=== PATIENT | female | born 1945 | race Caucasian/White ===

== ENCOUNTER 2020-09-24 13:31 | Outpatient (REF) | payer MEDICARE, SELFPAY ==
[2020-09-24 13:54] LABS: Glucose Urine UA NEG (NEG); Leukocyte Esterase Urine 2+ (NEG); Nitrite Urine POS (NEG); PH 6.5 (5.0-8.0); Specific Gravity - Urine <= 1.005 (1.005-1.025); Urine Blood NEG (NEG); Urine Ketones NEG (NEG); Urine Protein NEG (NEG-TRACE)
[2020-09-24 14:03] LABS: Appearance Urine HAZY; Color Urine YELLOW
[2020-09-24 14:41] LABS: Bacteria Urine 3+ /LPF; RBC Urine 0-2 /HPF (0); Squamous Epithelial Cell Urine 1+ /LPF; WBC Urine 30-49 /HPF (0-4)
== END 2020-09-24 13:32 | disposition home or self-care (01) ==
LOC: HO.LNP 13:31
PROVIDERS: Visit Provider Physician Assistant Medical
DX: N39.0 Urinary tract infection, site not specified (principal)
CPT/HCPCS: 81001

== ENCOUNTER 2021-05-24 10:31 | Emergency (ER) | payer MEDICARE, SELFPAY ==
[2021-05-24 10:40] VITALS: BP 180/77; PULSE 69; RESP 18; TEMP 36.7; O2SAT 97; BMI 27.4
--- NOTE | 2021-05-24 10:44 | ED.EAR ---
HPI - Ear Problem General Chief complaint: Ear Problems Stated complaint: ear pain Time Seen by Provider: 05/24/21 10:44 Source: patient Mode of arrival: ambulatory Limitations: no limitations History of Present Illness HPI Narrative: Patient is a 76 year old female presenting to the emergency department today with a left sided ear ache and left sided mouth pain. Patient states that she has dentures and it has been rubbing against the left side of her mouth more lately. Patient states that the earache kept her awake last night. Patient describes the pain as throbbing and rates it as a 4/10 on the pain scale. Patient denies any dizziness, lightheadedness, abdominal pain, nausea, vomiting, fever, chills, blurry vision, double vision, loss of vision, chest pain, difficulty breathing, shortness of breath, back pain, night sweats, pain with urination, increased urinary frequency, increased urinary urgency, blood in her urine or stool, syncope or a near syncopal episode, recent trauma or falls, bowel incontinence, bladder incontinence, bowel retention, bladder retention, or any other complaints at this time. MD Complaint: ear pain Location: left ear Duration: constant Severity: mild Relieving factors: nothing Exacerbating factors: nothing Discharge from ear: no Associated symptoms ear: other (left sided mouth pain) Treatment prior to arrival: none Related Data Home Medications Medication Instructions Recorded Confirmed amlodipine 5 mg tablet 5 mg PO DAILY 09/24/20 omeprazole 20 mg capsule,delayed 20 mg PO DAILY 09/24/20 release Previous Rx's Medication Instructions Recorded nitrofurantoin macrocrystal 100 mg 100 mg PO Q12H #10 cap 09/24/20 capsule clindamycin HCl 150 mg capsule 450 mg PO TID 7 Days #63 cap 05/24/21 Allergies Allergy/AdvReac Type Severity Reaction Status Date / Time Penicillins Allergy RASH, Verified 09/24/20 10:14 REDNESS Review of Systems Constitutional: Constitutional: Reports no additional constitutional complaints, Denies chills, Denies fever(s) and Denies night sweats Eyes: Eyes: Reports no additional eye complaints, Denies blurry vision, Denies change in vision, Denies diplopia, Denies eye discharge, Denies loss of vision and Denies eye pain ENT: Denies dizziness Comments: left sided ear pain Cardiovascular: Cardiovascular: Reports no additional cardiovascular complaints, Denies chest pain, Denies lightheadedness, Denies Loss of Consciousness and Denies dyspnea Respiratory: Respiratory: Reports no additional respiratory complaints and Denies dyspnea Gastrointestinal: Gastrointestinal: Reports no additional gastrointestinal complaints, Denies abdominal pain, Denies melena, Denies hematochezia, Denies change in bowel habits and Denies change in stool character Genitourinary: Genitourinary: Denies hematuria, Denies urinary frequency, Denies dysuria, Denies urinary incontinence, Denies urinary hesitancy and Denies urinary urgency Musculoskeletal: Musculoskeletal: Reports no additional musculoskeletal complaints, Denies numbness and Denies tingling Neurologic: Denies dizziness, Denies loss of vision, Denies numbness and Denies tingling Psychiatric: Psychiatric: Reports no additional psychiatric complaints Endocrine: Endocrine: Reports no additional endocrine complaints Hematologic/Lymphatic: Hematologic/Lymphatic: Reports no additional hematologic/lymphatic complaints Allergic/Immunologic: Allergic/Immunologic: Reports no additional allergic/immunologic complaints PMFSH Past Medical History Attestation statement: The following information was validated with the patient. Source: old records reviewed Medical History Hypertension Social History Social History Advance Directives: No Advance Directives Information Provided: Yes Physical Exam Vital Signs: Vital Signs: Last Vital Signs Temp 98.0 F 05/24/21 10:40 Pulse 69 05/24/21 10:40 Resp 18 05/24/21 10:40 BP 180/77 H 05/24/21 10:40 Pulse Ox 97 05/24/21 10:40 BMI result Body Mass Index 27.4 Const: General: cooperative, no acute distress, alert and awake Nutritional Appearance: well nourished Orientation/consciousness: patient oriented x3 Limitations: no limitations HENMT: Head: Yes normal to inspection and Yes atraumatic Ears: hearing grossly normal bilaterally, external ears normal and TM abnormal (very mild erythema to the left TM) General nose exam: Normal external nose present, no nasal discharge noted and no epistaxis Face and sinus: Yes normal facial exam, No abrasion and No laceration Mouth: Normal oral and palatal mucosa present, no drooling and no muffled voice Teeth and gingiva: other (erythema and swelling to the left side of the mouth) Eyes: General: appearance normal, both eyes and all related structures Periorbital: periorbital findings normal Eyelids: Yes eyelids normal Conjunctivae: conjunctivae normal Pupils: Equal, round and reactive pupils present EOM: EOMs intact bilaterally Neck: Neck: Yes normal visual inspection, Yes full ROM and Yes no lymphadenopathy Chest: Chest palpation & inspection: normal inspection of the chest Resp: Effort & Inspection: normal respiratory effort and able to speak in complete sentences GI: Inspection: Yes normal to inspection Neuro: General: patient oriented x3 and moves all extremities Cranial nerves: Yes Equal, round and reactive pupils present Cognition (Neuro): normal cognition Motor exam (neuro): 5/5 motor strength present throughout Sensory Exam: Normal double simultaneous stimulation for sensation Coordination: [id number] test normal Extrem: General: Yes normal to inspection, Yes full ROM and Yes capillary refill normal Psych: Appearance: grossly normal Mental Status: mental status grossly normal Affect: normal affect Attitude: cooperative Thought process: Normal thought process present Thought content: Normal thought content present Insight: Good insight present (Psych) MDM - Ear MDM Narrative Medical decision making narrative: Patient is a 76 year old female presenting to the emergency department today with left ear pain and left sided mouth pain. Patient's physical exam showed mild swelling to the left side of the inner mouth with some erythema as well as very mild erythema to the left TM. I explained my physical exam findings to the patient. I answered all questions asked by the patient. I stressed the importance of the patient taking her medication as prescribed. I stressed the importance of the patient following up with her primary care provider. I stressed the importance of the patient returning to the emergency department immediately if her symptoms were to worsen or if she were to develop any dizziness, shortness of breath, difficulty breathing, chest pain, blurry vision, loss of vision, nausea, vomiting, abdominal pain, fever, chills, back pain, or any other complaints. Patient verbalized agreement and understanding with this treatment plan and discharge. Differential Diagnosis Differential diagnosis: Likely otitis externa (dental abscess) and otitis media Medical Records Attestation: I reviewed the patient's medical records. Discharge Plan Discharge Clinical Impression: Dental abscess Patient Disposition: Home, Self-Care Instructions: Dental Abscess (ED) Additional Instructions: Follow up with your primary care provider and dentist. Return to the emergency department immediately if your symptoms worsen or if you develop any dizziness, shortness of breath, difficulty breathing, chest pain, blurry vision, loss of vision, nausea, vomiting, abdominal pain, fever, chills, back pain, or any other complaints. Prescriptions: New clindamycin HCl 150 mg capsule 450 mg PO TID 7 Days Qty: 63 0RF No Action nitrofurantoin macrocrystal 100 mg capsule 100 mg PO Q12H Qty: 10 0RF Rx Instructions: must administer with a meal/food Referrals: Rachel Fabian MD [Primary Care Provider] - 2 days Interventions: ED Discharge Assessment Last Done: 05/24/21 10:58 Discharge Date/Time: 05/24/21 11:01 Print Language: [place]
== END 2021-05-24 11:01 | disposition home or self-care (01) ==
PROVIDERS: Emergency Provider Emergency Medicine Emergency Medical Services; PCP Pediatrics
DX: K04.7 Periapical abscess without sinus (principal); H92.02 Otalgia, left ear
CPT/HCPCS: 99283

== ENCOUNTER 2021-06-30 14:21 | Outpatient (REF) | payer MEDICARE, SELFPAY ==
[2021-06-30 14:30] LABS: MANUAL DIFF FLAG NO
[2021-06-30 15:33] LABS: Basophils Absolute Auto 0.1 X10*3/uL (0.0-0.2); Basophils Percent Auto 0.7 % (0-2); Eosinophils Absolute Auto 0.4 X10*3/uL (0.0-0.4); Eosinophils Percent Auto 4.9 % (0-4); Hemoglobin 14.3 g/dl (12.0-16.0); Imm Gran Abs Auto 0.02 X10*3/uL (0.00-0.03); Imm Gran Pct Auto 0.2 % (0.0-0.4); Lymphocytes Absolute Auto 2.1 X10*3/uL (1.2-4.9); Lymphocytes Percent Auto 23.6 % (20-40); Mean Corpuscular HGB Conc 33.3 g/dl (31.0-35.0); Mean Corpuscular Hemoglobin 29.8 pg (27.0-33.0); Mean Corpuscular Volume 89.6 fL (80.0-98.0); Mean Platelet Volume 9.7 fL (9.4-12.3); Monocytes Absolute Auto 0.7 X10*3/uL (0.1-1.2); Monocytes Percent Auto 8.3 % (2-11); Neutrophils Absolute Auto 5.5 x10*3/uL (2.0-8.3); Neutrophils Percent Auto 62.3 % (45-73); Platelet Count 333 X10*3/uL (160-400); Red Cell Distribution Width 12.5 % (11.0-16.0); White Blood Count 8.8 X10*3/uL (4.8-10.8)
== END 2021-06-30 14:22 | disposition home or self-care (01) ==
LOC: HO.LAB 14:21
PROVIDERS: PCP Pediatrics; Visit Provider Hospitalist
DX: M54.2 Cervicalgia (principal); R22.1 Localized swelling, mass and lump, neck; Z87.19 Personal history of other diseases of the digestive system
CPT/HCPCS: 36415; 85025

== ENCOUNTER 2021-08-08 09:28 | Emergency (ER) | payer MEDICARE, SELFPAY ==
--- NOTE | ~2021-08-08 | XR_ITS ---
EXAMINATION: XR CHEST CLINICAL INFORMATION: Dizziness COMPARISON: None TECHNIQUE: Frontal view of the chest was obtained. FINDINGS: Cardiac leads overlie the chest. The lungs are well expanded. There is no focal consolidation, edema, or effusion. No pneumothorax. The cardiomediastinal silhouette is within normal limits of size with a calcified aorta. No acute osseous abnormality. XR/XR chest 1V IMPRESSION: Clear lungs.
--- NOTE | ~2021-08-08 | CT_ITS ---
EXAMINATION: CT HEAD WITHOUT CONTRAST CLINICAL INFORMATION: Dizziness. Headache. COMPARISON: None. TECHNIQUE: Contiguous axial imaging was performed from the skull base to vertex without intravenous contrast. This CT examination was performed using dose optimization techniques as appropriate, variously including the following: * Automated exposure control * Adjustment of mA and/or kV according to patient size (this includes techniques or standardized protocols for targeted exams where dose is matched to indication/reason for exam; i.e. extremities or head) Use of iterative reconstruction technique DLP: 567 mGy-cm. FINDINGS: There is no evidence of acute intracranial hemorrhage or territorial infarction. No abnormal mass effect or midline shift is seen. [place] to white matter differentiation is well preserved. No extra-axial fluid collections are identified. No hydrocephalus. Proportional prominence of the ventricles and sulcal spaces is consistent with mild volume loss. Patchy periventricular and deep white matter hypoattenuation is consistent with mild small vessel ischemic changes. The osseous structures and soft tissues are normal. The mastoid air cells and visualized portions of the paranasal sinuses are well aerated. CT/CT head/brain wo con IMPRESSION: No acute intracranial pathology.
[2021-08-08 09:31] VITALS: BP 171/78; PULSE 79; RESP 16; TEMP 36.7; O2SAT 98; BMI 27.9
[2021-08-08 09:42] LABS: MANUAL DIFF FLAG NO
[2021-08-08 09:50] LABS: Basophils Absolute Auto 0.1 X10*3/uL (0.0-0.2); Basophils Percent Auto 0.9 % (0-2); Eosinophils Absolute Auto 0.5 X10*3/uL (0.0-0.4); Hematocrit 45.1 % (37.0-47.0); Hemoglobin 15.5 g/dl (12.0-16.0); Imm Gran Abs Auto 0.05 X10*3/uL (0.00-0.03); Imm Gran Pct Auto 0.7 % (0.0-0.4); Lymphocytes Absolute Auto 1.8 X10*3/uL (1.2-4.9); Lymphocytes Percent Auto 23.5 % (20-40); Mean Corpuscular HGB Conc 34.4 g/dl (31.0-35.0); Mean Corpuscular Hemoglobin 30.2 pg (27.0-33.0); Mean Corpuscular Volume 87.9 fL (80.0-98.0); Mean Platelet Volume 8.8 fL (9.4-12.3); Monocytes Absolute Auto 0.5 X10*3/uL (0.1-1.2); Monocytes Percent Auto 7.1 % (2-11); Neutrophils Absolute Auto 4.7 x10*3/uL (2.0-8.3); Neutrophils Percent Auto 61.8 % (45-73); Platelet Count 303 X10*3/uL (160-400); Red Blood Count 5.13 X10*6/uL (4.20-5.50); Red Cell Distribution Width 12.3 % (11.0-16.0); White Blood Count 7.6 X10*3/uL (4.8-10.8)
[2021-08-08 09:58] LABS: Alanine Aminotransferase 31 U/L (0-31); Albumin Level 4.3 g/dL (3.5-5.0); Alkaline Phosphatase 92 U/L (39-117); Anion Gap 12 (12-20); Aspartate Amino Transferase 27 U/L (5-31); Bilirubin Total 0.4 mg/dL (0.0-1.0); Blood Urea Nitrogen 18 mg/dL (9-16); Calcium 9.1 mg/dL (8.4-10.2); Carbon Dioxide 27 mmol/L (22-29); Chloride 107 mmol/L (96-108); Creatinine Clr Calc Pharmacy 54.7; Estimated Glomerular Filt Rate 60; Glucose Random 100 mg/dL (60-115); Potassium 4.4 mmol/L (3.3-5.1); Sodium 142 mmol/L (135-145); Total Protein 7.7 g/dL (6.5-8.0)
--- NOTE | 2021-08-08 11:09 | ECG_ITS ---
Test Reason : dizziness Blood Pressure : / mmHG Vent. Rate : 066 BPM Atrial Rate : 066 BPM P-R Int : 146 ms QRS Dur : 088 ms QT Int : 396 ms P-R-T Axes : 055 -11 032 degrees QTc Int : 415 ms Sinus rhythm with occasional Premature ventricular complexes Nonspecific ST abnormality Abnormal ECG No previous ECGs available Referred By: Avani Wolfe Electronically Signed By:CHIO HOFFMAN MD
[2021-08-08] MEDS: 0.9 % Sodium Chloride 1,000 ML 999 ML IV (11:26)
[2021-08-08] MEDS: Meclizine HCl 25 MG TABLET PO (11:29)
[2021-08-08] MEDS: diphenhydrAMINE HCL 50 MG/ML VIAL 12.5 MG IVPUSH (11:29)
[2021-08-08 11:31] VITALS: BP 169/75; PULSE 76
[2021-08-08 11:32] VITALS: BP 165/76; PULSE 64
[2021-08-08 11:33] VITALS: BP 174/82; PULSE 80
[2021-08-08 11:35] VITALS: BP 174/82; PULSE 72; RESP 16; O2SAT 98
--- NOTE | 2021-08-08 11:36 | PC.NURSE ---
IV #20 placed in left AC
[2021-08-08 11:41] LABS: Anion Gap 12 (12-20); Blood Urea Nitrogen 17 mg/dL (9-16); Calcium 9.4 mg/dL (8.4-10.2); Carbon Dioxide 27 mmol/L (22-29); Chloride 107 mmol/L (96-108); Creatinine Clr Calc Pharmacy 55.3; Estimated Glomerular Filt Rate > 60; Glucose Random 103 mg/dL (60-115); Potassium 4.5 mmol/L (3.3-5.1); Sodium 141 mmol/L (135-145)
[2021-08-08 11:44] LABS: Magnesium 2.1 mg/dL (1.6-2.6)
[2021-08-08 11:53] LABS: Troponin-I High Sensitivity < 3.5 ng/L (<3.5-17.0)
--- NOTE | 2021-08-08 12:13 | ED.GENADULT ---
HPI - General Adult General Chief complaint: Dizziness Stated complaint: Dizzy Time Seen by Provider: 08/08/21 10:54 Source: patient Mode of arrival: ambulatory History of Present Illness HPI narrative: 76-year-old female with past medical to hypertension presenting to the ED complaining of intermittent dizziness described as feeling off balance x1 week worse with bending over/position changes. Also reports posterior pressure-like headache. Denies vision change/loss, weakness, numbness, tingling, chest pain pressure with abdominal pain nausea/vomiting. Admits to similar symptoms in the past with prior ear infection Onset (ago): week(s) Related Data Home Medications Medication Instructions Recorded Confirmed amlodipine 5 mg tablet 5 mg PO DAILY 09/24/20 omeprazole 20 mg capsule,delayed 20 mg PO DAILY 09/24/20 release Previous Rx's Medication Instructions Recorded meclizine 25 mg tablet 25 mg PO TID PRN #14 tab 08/08/21 Allergies Allergy/AdvReac Type Severity Reaction Status Date / Time Penicillins Allergy RASH, Verified 06/30/21 13:25 REDNESS Review of Systems Review of Systems: Constitutional: No Fever, No Chills, No Fatigue, No Malaise ENT/Mouth: No Ear Pain, No Nasal Congestion, No sore throat, No Rhinorrhea, No Swallowing Difficulty Eyes: No Eye Pain, No Swelling, No Redness, No Vision Changes Cardiovascular: No Chest Pain, No SOB, No Dyspnea on Exertion, No Orthopnea, No Edema, No Palpitations Respiratory: No Cough, No Sputum, No Dyspnea Gastrointestinal: No Nausea, No Vomiting, No Diarrhea, No Constipation, No Abdominal pain Genitourinary: No Dysuria, No Urinary Frequency, No Hematuria, No Flank Pain Musculoskeletal: No joint pain, No Myalgias, No Joint Swelling Skin: No Skin Lesions, No rash Neuro: No Weakness, No Numbness, No Paresthesias, No Loss of Consciousness, + Dizziness, + Headache Yes all other systems are reviewed and are negative Neurologic: Denies Abnormal speech present [facility] Past Medical History Attestation statement: The following information was validated with the patient. Medical History Hypertension Social History Social History Alcohol intake: current Alcohol intake frequency: holidays/special occasions only Patient Tobacco Use Status: Never used Tobacco Advance Directives: Yes Advance Directives Information Provided: Yes Advance Directives on File: No Physical Exam ED Vital Signs: Vital Signs - 24 hr 08/08/21 09:31 08/08/21 11:31 08/08/21 11:32 Temperature 98.0 F Pulse Rate 79 76 64 Respiratory Rate 16 Blood Pressure 171/78 H 169/75 H 165/76 H Pulse Oximetry 98 08/08/21 11:33 08/08/21 11:35 08/08/21 12:18 Temperature 98.2 F Pulse Rate 80 72 60 Respiratory Rate 16 18 Blood Pressure 174/82 H 174/82 H 174/82 H Pulse Oximetry 98 98 BMI result Body Mass Index 27.9 Const General: cooperative, healthy appearing, no acute distress, well developed, alert, awake and Physically active Orientation/consciousness: patient oriented x3 Limitations: no limitations HENMT Head: Yes normal to inspection and Yes atraumatic Ears: hearing grossly normal bilaterally General nose exam: Normal external nose present Face and sinus: Yes normal facial exam Eyes General: appearance normal, both eyes and all related structures Pupils: Equal, round and reactive pupils present EOM: EOMs intact bilaterally Neck Neck: Yes normal visual inspection and Yes no meningeal signs Resp Effort & Inspection: normal respiratory effort and no respiratory distress Auscultation: clear to auscultation bilaterally, no rales, no rhonchi and no wheezes Cardio Rate: regular rate Heart sounds: S1 normal heart sound present and S2 normal heart sound present GI Inspection: Yes normal to inspection Palpation (GI): Soft to palpation, nontender, no guarding and not rigid Skin Rashes: no rashes Wounds: no wounds Neuro General: patient oriented x3, gait normal, tone normal, moves all extremities, no meningeal signs, no focal motor deficits and CN's II-XI intact bilaterally Cranial nerves: Yes CN's II-XII intact bilaterally, Yes Equal, round and reactive pupils present, Yes Bilaterally intact EOM present and Yes Nystagmus not present Cognition (Neuro): normal cognition Speech: No Abnormal speech present Gait exam (Neuro): Normal gait present and not ataxic Motor exam (neuro): 5/5 motor strength present throughout, Pronator motor function not present and no tremor noted Coordination: [id number] test normal Romberg Test: Negative Extrem Other: Mild bilateral LE edema greater to left (chronically per patient) Course Course Course Narrative: -1227--none unremarkable. Troponin negative. -orthostatic vital signs negative CT head/brain wo con IMPRESSION: No acute intracranial pathology. >1313--on re-evaluation patient reports mild symptomatic improvement, ambulated safely/steady to bathroom without assistance. XR chest 1V IMPRESSION: Clear lungs. ? -1328--UA negative. Results discussed with patient including worrisome signs and symptoms and strict return precautions and need a close follow-up with the ENT/PCP. Patient verbalized understanding and feels safe for discharge home at this time Medical Decision Making MDM Narrative Medical decision making narrative: 76-year-old female with past medical to hypertension presenting to the ED complaining of intermittent dizziness described as feeling off balance x1 week worse with bending over/position changes. On exam vital signs stable, NAD/nontoxic-appearing, no focal neuro deficits, ambulating with steady gait, no ataxia. Concern for vertigo/BPPV, no evidence of otitis at this time. For concern for SAH, meningitis/encephalitis, CVA or CVT Plan: EKG, labs, UA, head CT, CXR, symptomatic remedie, orthostatics, re-evaluate Medical Records Medical records reviewed: Yes I reviewed the patient's medical records. Lab Data Lab results reviewed: Yes I reviewed the patient's lab results. Result diagrams: 08/08/21 09:38 08/08/21 11:18 Labs: Lab Results 08/08/21 08/08/21 08/08/21 Range/Units 09:38 09:38 09:38 WBC 7.6 (4.8-10.8) X10*3/uL RBC 5.13 (4.20-5.50) X10*6/uL Hgb 15.5 (12.0-16.0) g/dl Hct 45.1 (37.0-47.0) % MCV 87.9 (80.0-98.0) fL MCH 30.2 (27.0-33.0) pg MCHC 34.4 (31.0-35.0) g/dl RDW 12.3 (11.0-16.0) % Plt Count 303 (160-400) X10*3/uL MPV 8.8 L (9.4-12.3) fL Immature Gran % (Auto) 0.7 H (0.0-0.4) % Neut % (Auto) 61.8 (45-73) % Lymph % (Auto) 23.5 (20-40) % [place] % (Auto) 7.1 (2-11) % Eos % (Auto) 6.0 H (0-4) % Baso % (Auto) 0.9 (0-2) % Lymph # (Auto) 1.8 (1.2-4.9) X10*3/uL [place] # (Auto) 0.5 (0.1-1.2) X10*3/uL Eos # (Auto) 0.5 H (0.0-0.4) X10*3/uL Baso # (Auto) 0.1 (0.0-0.2) X10*3/uL Abs Immat Gran (auto) 0.05 H (0.00-0.03) X10*3/uL Absolute Neuts (auto) 4.7 (2.0-8.3) x10*3/uL Absolute Nucleated RBC 0.000 (0.0-0.012) X10*3/uL Nucleated RBC % (auto) 0.0 (0.0-0.2) /100WBC Sodium 142 (135-145) mmol/L Potassium 4.4 (3.3-5.1) mmol/L Chloride 107 (96-108) mmol/L Carbon Dioxide 27 (22-29) mmol/L Anion Gap 12 (12-20) BUN 18 H (9-16) mg/dL Creatinine 0.91 (0.5-1.4) mg/dL Estim Creat Clear Calc 54.7 Estimated GFR 60 Random Glucose 100 (60-115) mg/dL Calcium 9.1 (8.4-10.2) mg/dL Magnesium 2.1 (1.6-2.6) mg/dL Total Bilirubin 0.4 (0.0-1.0) mg/dL AST 27 (5-31) U/L ALT 31 (0-31) U/L Alkaline Phosphatase 92 (39-117) U/L Troponin I High Sens < 3.5 (<3.5-17.0) ng/L Total Protein 7.7 (6.5-8.0) g/dL Albumin 4.3 (3.5-5.0) g/dL Urine Color Urine Appearance Urine pH (5.0-8.0) Ur Specific [place] (1.005-1.025) Urine Protein (NEG-TRACE) MG/DL Urine Glucose (UA) (NEG) MG/DL Urine Ketones (NEG) MG/DL Urine Blood (NEG) Urine Nitrite (NEG) Ur Leukocyte Esterase (NEG) 08/08/21 08/08/21 Range/Units 11:18 13:07 WBC (4.8-10.8) X10*3/uL RBC (4.20-5.50) X10*6/uL Hgb (12.0-16.0) g/dl Hct (37.0-47.0) % MCV (80.0-98.0) fL MCH (27.0-33.0) pg MCHC (31.0-35.0) g/dl RDW (11.0-16.0) % Plt Count (160-400) X10*3/uL MPV (9.4-12.3) fL Immature Gran % (Auto) (0.0-0.4) % Neut % (Auto) (45-73) % Lymph % (Auto) (20-40) % [place] % (Auto) (2-11) % Eos % (Auto) (0-4) % Baso % (Auto) (0-2) % Lymph # (Auto) (1.2-4.9) X10*3/uL [place] # (Auto) (0.1-1.2) X10*3/uL Eos # (Auto) (0.0-0.4) X10*3/uL Baso # (Auto) (0.0-0.2) X10*3/uL Abs Immat Gran (auto) (0.00-0.03) X10*3/uL Absolute Neuts (auto) (2.0-8.3) x10*3/uL Absolute Nucleated RBC (0.0-0.012) X10*3/uL Nucleated RBC % (auto) (0.0-0.2) /100WBC Sodium 141 (135-145) mmol/L Potassium 4.5 (3.3-5.1) mmol/L Chloride 107 (96-108) mmol/L Carbon Dioxide 27 (22-29) mmol/L Anion Gap 12 (12-20) BUN 17 H (9-16) mg/dL Creatinine 0.90 (0.5-1.4) mg/dL Estim Creat Clear Calc 55.3 Estimated GFR > 60 Random Glucose 103 (60-115) mg/dL Calcium 9.4 (8.4-10.2) mg/dL Magnesium (1.6-2.6) mg/dL Total Bilirubin (0.0-1.0) mg/dL AST (5-31) U/L ALT (0-31) U/L Alkaline Phosphatase (39-117) U/L Troponin I High Sens (<3.5-17.0) ng/L Total Protein (6.5-8.0) g/dL Albumin (3.5-5.0) g/dL Urine Color STRAW Urine Appearance HAZY Urine pH 5.5 (5.0-8.0) Ur Specific [place] <= 1.005 (1.005-1.025) Urine Protein NEG (NEG-TRACE) MG/DL Urine Glucose (UA) NEG (NEG) MG/DL Urine Ketones NEG (NEG) MG/DL Urine Blood NEG (NEG) Urine Nitrite NEG (NEG) Ur Leukocyte Esterase 1+ H (NEG) ECG Data Attestation: I personally reviewed and interpreted this ECG as follows: Prior ECG tracings: available for review Interpretation: ED normal sinus rhythm with occasional PVC 356. QTC 415. No STEMI. Nonischemic Discharge Plan Discharge Clinical Impression: Dizziness Patient Disposition: Home, Self-Care Instructions: Vertigo (DC) Additional Instructions: Your blood work, head CT, and urine were reassuring today in the emergency department. Meclizine helps with dizziness, take as needed. Please stay hydrated at home. Rest. Follow up with her doctor and an ENT specialist If symptoms persist or worsen, have constant worsening dizziness, persistent or worsening headache, nausea/vomiting, weakness views return to the emergency department Prescriptions: New meclizine 25 mg tablet 25 mg PO TID PRN (Reason: dizziness) Qty: 14 0RF No Action omeprazole 20 mg capsule,delayed release(DR/EC) 20 mg PO DAILY 0RF amlodipine 5 mg tablet 5 mg PO DAILY 0RF Referrals: Hayder Palmer [Physician] - 3 days O'Pruitt,Josie M, MD [Primary Care Provider] -
[2021-08-08 12:18] VITALS: BP 174/82; PULSE 60; RESP 18; TEMP 36.8; O2SAT 98
[2021-08-08 13:16] LABS: Appearance Urine HAZY; Color Urine STRAW; Glucose Urine UA NEG (NEG); Leukocyte Esterase Urine 1+ (NEG); Nitrite Urine NEG (NEG); PH 5.5 (5.0-8.0); Specific Gravity - Urine <= 1.005 (1.005-1.025); UACC Culture Trigger YES; Urine Blood NEG (NEG); Urine Ketones NEG (NEG); Urine Protein NEG (NEG-TRACE)
[2021-08-08 13:27] LABS: Bacteria Urine 2+ /LPF; RBC Urine 0-2 /HPF (0); Squamous Epithelial Cell Urine 1+ /LPF
== END 2021-08-08 13:53 | disposition home or self-care (01) ==
PROVIDERS: Physician Assistant; Emergency Provider Student in an Organized Health Care Education/Training Program; PCP Internal Medicine
DX: R42 Dizziness and giddiness (principal); R35.0 Frequency of micturition; B96.20 Unspecified Escherichia coli [E. coli] as the cause of diseases classified elsewhere; R51.9 Headache, unspecified; I10 Essential (primary) hypertension; Z87.440 Personal history of urinary (tract) infections
CPT/HCPCS: 36415; 70450; 71045; 80048; 80053; 81001; 83735; 84484; 85025; 87086; 87088; 87186; 93005; 96361; 96374; 99284; J1200

== ENCOUNTER → 2022-03-31 09:24 | Outpatient (BNVA) | payer MEDICARE, SELFPAY | PROVIDERS: PCP Internal Medicine; Visit Provider Surgery Vascular Surgery | DX: I83.12 Varicose veins of left lower extremity with inflammation (principal) | CPT/HCPCS: 99202 ==

== ENCOUNTER 2022-04-17 08:08 | Outpatient (REF) | payer MEDICARE, SELFPAY ==
--- NOTE | ~2022-04-17 | US_ITS ---
EXAMINATION: US LOWER EXTREMITY VENOUS (REFLUX EXAM), BILATERAL CLINICAL INDICATION: Chronic venous insufficiency with lower extremity varicose veins COMPARISON: None. TECHNIQUE: Color flow triplex imaging and compression Doppler was performed to evaluate both the deep and the superficial systems bilaterally. To evaluate the superficial system, the examination was performed in the upright position. Color-flow Doppler ultrasound and compression ultrasound were utilized. In addition, maneuvers were utilized to demonstrate reflux. FINDINGS: 1. DEEP VENOUS ULTRASOUND OF THE RIGHT LOWER EXTREMITY: Common Femoral Vein: Compressible, normal respiratory variation and augmented flow. Femoral Vein: Compressible, normal color flow and augmentation. Popliteal Vein: Compressible, normal augmentation. Deep Reflux: There is no evidence of reflux in the deep system in either the common femoral vein or the popliteal vein. There is no evidence of a Brar's cyst. 2. SUPERFICIAL ULTRASOUND WITH DOPPLER OF RIGHT LOWER EXTREMITY: GREAT SAPHENOUS VEIN: Saphenofemoral Junction: 0.5 cm; Reflux: 0 ms Proximal Thigh: 0.3 cm; Reflux: 0 ms Mid Thigh: 0.3 cm; Reflux: 0 ms Above Knee: 0.3 cm; Reflux: 0 ms At Knee: 0.2 cm; Reflux: 0 ms Below Knee: 0.3 cm; Reflux: 0 ms Mid Calf: 0.2 cm; Reflux: 1232 ms Ankle: 0.3 cm; Reflux: 1364 ms DUPLICATED MEDIAL GREAT SAPHENOUS VEIN: Diameter: None Imaged Reflux: NA DUPLICATED LATERAL GREAT SAPHENOUS VEIN: Diameter: 0.5 cm Reflux: None SMALL SAPHENOUS VEIN: Proximal: 0.4 cm; Reflux: 0 ms Distal: 0.3 cm; Reflux: 0 ms VEIN OF GIACOMINI: None Imaged. PERFORATORS: Location: None Imaged Size: NA Reflux: NA VARICOSITIES: Location: None significant Size: NA Reflux: NA 3. DEEP VENOUS ULTRASOUND OF THE LEFT LOWER EXTREMITY: Common Femoral Vein: Compressible, normal respiratory variation and augmented flow. Femoral Vein: Compressible, normal color flow and augmentation. Popliteal Vein: Compressible, normal augmentation. Deep Reflux: There is no evidence of reflux in the deep system in either the common femoral vein or the popliteal vein. There is no evidence of a Brar's cyst. 4. SUPERFICIAL ULTRASOUND WITH DOPPLER OF LEFT LOWER EXTREMITY: GREAT SAPHENOUS VEIN: Saphenofemoral Junction: 0.6 cm; Reflux: 0 ms Proximal Thigh: 0.3 cm; Reflux: 0 ms Mid Thigh: 0.2 cm; Reflux: 0 ms Above Knee: 0.2 cm; Reflux: 0 ms At Knee: 0.3 cm; Reflux: 0 ms Below Knee: 0.3 cm; Reflux: 0 ms Mid Calf: 0.3 cm; Reflux: 0 ms Ankle: 0.3 cm; Reflux: 1684 ms DUPLICATED MEDIAL GREAT SAPHENOUS VEIN: Diameter: None Imaged Reflux: NA DUPLICATED LATERAL GREAT SAPHENOUS VEIN: Diameter: None Imaged Reflux: NA SMALL SAPHENOUS VEIN: Proximal: 0.3 cm; Reflux: 0 ms Distal: 0.4 cm; Reflux: 0 ms VEIN OF GIACOMINI: None Imaged. PERFORATORS: Location: None Imaged Size: NA Reflux: NA VARICOSITIES: Location: Posterior calf off the SSV, distal medial calf off the GSV Size: 0.2 to 0.5 cm Reflux: Ranging from 2080 ms to 2532 ms US/US venous duplex LE BI IMPRESSION: Right: Focal areas of reflux within the right great saphenous vein in the mid calf and ankle Left: Focal reflux in the left great saphenous vein at the ankle. There are varicose veins seen in the calf arising from the great saphenous vein and small saphenous vein with reflux as described above
== END 2022-04-17 08:09 | disposition home or self-care (01) ==
LOC: HO.US 08:08
PROVIDERS: PCP Internal Medicine; Visit Provider Surgery Vascular Surgery
DX: I83.893 Varicose veins of bilateral lower extremities with other complications (principal)
CPT/HCPCS: 93970

== ENCOUNTER → 2022-05-05 12:44 | Outpatient (BNVA) | payer MEDICARE, SELFPAY | PROVIDERS: PCP Internal Medicine; Visit Provider Surgery Vascular Surgery | DX: I83.12 Varicose veins of left lower extremity with inflammation (principal) | CPT/HCPCS: 99212 ==

== ENCOUNTER 2023-09-10 14:37 | Outpatient (AMB) | payer MEDICARE, SELFPAY ==
--- NOTE | 2023-09-10 14:43 | MHC.PC.OV ---
Vital Signs 09/10/23 14:52 Height 5 ft 6 in Weight 154 lb 8 oz BMI 24.9 BP 138/70 Blood Pressure Location Lt brachial Position Sitting Respiration 13 Pulse 72 Pulse Source Pulse Oximeter Pulse Oximetry (%) 96 Oxygen Delivery Method Room Air Intake Visit Reasons: NPV Intake Note: Patient is here to establish care with [facility]. Patient would like the doctor to know she was diagnosed with no rash shingles Keyseating Machine Set Up Operator Required: No Accompanied by: Self / Same As Patient Allergies Penicillins Allergy (Verified 09/10/23 14:57) RASH, REDNESS Tobacco use date assessed: 09/10/23 Fall risk assessment: No Falls in past year Last assessed Fall Risk: 09/10/23 Dental Screening Dental Screen Date: 09/10/23 Did you have a dental visit in the last 12 months?: Yes Did you have a dental problem in the last 6 months where you did not have access to dental care?: No Was dental information given to patient?: Patient has dentist HPI HPI Comments History of Present Illness Details Patient is a 78 year old female with a past medical history of hypertension GERD, osteoporosis, frequent UTIs presenting for follow up CV: Blood pressure adequately controlled. Declines statin therapy. She was having LE edema. Saw her aviation engineer told her to try to Following with urology for frequent UTIs MSK: Osteoporosis. Was on fosamax x years was not helping readings so stopped. Takes calcium and vitamin D Left neck pain for the 2 years. She went to the dentist -no tooth problems though likely shingles.. Went to the ENT. EAr doctor said no ear issue. Went to the ER doctor said shingles. Wondering if medication would be effective to control discomfort ROS CONSTITUTIONAL: Denies weight loss, fever and chills. HEENT: Denies changes in vision and hearing. RESPIRATORY: Denies SOB and cough. CV: Denies palpitations and CP GI: Denies abdominal pain, nausea, vomiting and diarrhea. : Denies dysuria and urinary frequency. MSK: Denies new myalgia and joint pain. SKIN: Denies rash and pruritus. NEUROLOGICAL: Denies headache PSYCHIATRIC: Denies recent changes in mood. PHYSICAL EXAM: GENERAL: Alert and oriented x 3. NAD EYES: EOMI. Anicteric. HENT: Moist mucous membranes. No scleral icterus. No cervical lymphadenopathy. LUNGS: Clear to auscultation bilaterally. CARDIOVASCULAR: Regular rate and rhythm. No murmur. No JVD. ABDOMEN: Soft, non-tender +bs EXTREMITIES: No edema. Non-tender. SKIN: No rashes or lesions. Warm. NEUROLOGIC: No focal neurological deficits. CN II-XII grossly intact PSYCHIATRIC: Cooperative. Appropriate mood and affect [facility] Medical History (Updated 09/12/23 @ 10:57 by Josie Morley MD) Shingles Renal cyst Osteoporosis GERD (gastroesophageal reflux disease) Hypertension Surgical History History of cataract surgery History of tubal ligation Hx laparoscopic cholecystectomy Family History (Updated 09/10/23 @ 15:08 by Tiara Constantino CMA) Mother Diabetes Father Cardiovascular disease Sister Cancer Sister Cancer Sister Cancer Social History (Updated 09/10/23 @ 15:09 by Tiara Constantino CMA) Household Members: Spouse Housing: House 75 years or older and lives alone: No Alcohol intake: current Alcohol intake frequency: holidays/special occasions only Patient Tobacco Use Status: Never used Tobacco e-Cigarette/Vaping Use: Never Used service: No Current occupational status: retired Cognitive needs: No Hearing needs: No Vision needs: No Questionnaire PHQ-9 Over the last 2 weeks, how often have you been bothered by any of the following problems? 2. Feeling down, depressed, or hopeless: not at all 3. Trouble falling or staying asleep, or sleeping too much: not at all 4. Feeling tired or having little energy: not at all 5. Poor appetite or overeating: not at all 6. Feeling bad about yourself - or that you are a failure or have let yourself or your family down: not at all 7. Trouble concentrating on things, such as reading the newspaper or watching television: not at all 8. Moving or speaking so slowly that other people could have noticed. Or the opposite - being so fidgety or restless that you have been moving around a lot more than usual: not at all 9. Thoughts that you would be better off or of hurting yourself in some way: not at all Depression Screening Interpretation: Negative Depression Screening Done: Yes 59212 - PHQ-9 Billing: Yes Source: Developed by Drs. Amadou Harding, Yakelin Chávez, Pedro Anne and colleagues, with an educational brandon from [employer]. Thrive Questionnaire Date Thrive assessed: 09/10/23 I am a: Patient What is your living situation today?: I have a steady place to live Within the past 12 months, did the food you bought not last and you didn't have the money to get more?: Never true Within the past 12 months, did you worry whether your food would run out before you got money to buy more?: Never true Do you have trouble paying for medicines?: No Do you have trouble getting transportation to medical appointments?: No Do you have trouble paying your heating and electricity bill?: No Do you have trouble taking care of your child, family member or friend?: No Do you have trouble with day-to-day activities such as bathing, preparing meals, shopping, managing finances, etc.?: No Are you currently unemployed and looking for a job?: No Are you interested in more education?: No Please select the resources that you would like help with: None Currently or been in a relationship where the following occur: No concerns reported THRIVE Score: 0 AUDIT C Alcohol Use Questionnaire (AUDIT-C) 1. How often do you have a drink containing alcohol?: 2-4 times a month 2. How many drinks containing alcohol do you have on a typical day when you are drinking?: 1 or 2 3. How often do you have six or more drinks on one occasion?: Never Total Score: 2 MINDY-7 AMB Questionnaire MINDY-7 Date MINDY - 7 assessed: 09/10/23 Feeling nervous, anxious, or on edge: 0 = Not at all Not being able to stop or control worryin = Not at all Worrying too much about different things: 0 = Not at all Trouble relaxin = Not at all Being so restless that it is hard to sit still: 0 = Not at all Becoming easily annoyed or irritable: 0 = Not at all Feeling afraid as if something awful might happen: 0 = Not at all Total MINDY-7 score (0-4 normal; 5-9 mild; 10-14 moderate; 15-21 severe): 0 Source: Developed by Yakelin Castillo Kurt Kroenke and colleagues, with an educational brandon from [employer]. MINDY-7 Assessment Billing MINDY-7 Assessment Tool: MINDY-7 Assessment 22074 Physical exam (Primary Care) Vital Signs: Last Vital Signs Pulse 72 09/10/23 14:52 Resp 13 09/10/23 14:52 BP 138/70 09/10/23 14:52 Pulse Ox 96 09/10/23 14:52 Oxygen Delivery Method Room Air 09/10/23 14:52 BMI result Body Mass Index 24.9 Tobacco/Smoking Status: Tobacco use Status Tobacco use date assessed 09/10/23 09/10/23 15:02 Patient Tobacco Use Status Never used Tobacco 09/10/23 15:09 e-Cigarette/Vaping Use Never Used 09/10/23 15:09 Depression Screening Interpretation: Negative Thrive Assessment: Date of Thrive Assessment Date Thrive assessed 09/10/23 09/10/23 15:02 Currently or been in a relationship where the following occur: No concerns reported Assessment and Plan Assessment & Plan (1) Neck pain on left side: Code(s): M54.2 - Cervicalgia Plan: Trial gabapentin. I suspect this is cervical DDD/neuralgia vs post shingles (no rash) neuralgia. In either case in the medication is tolerated it should be effective (2) Hypertension: Code(s): I10 - Essential (primary) hypertension Qualifiers: Hypertension type: primary hypertension Qualified Code(s): I10 - Essential (primary) hypertension (3) Post herpetic neuralgia: Code(s): B02.29 - Other postherpetic nervous system involvement Orders: Orders XR cervical spine 3V 09/10/23 M54.2 - Cervicalgia Medications: New gabapentin 300 mg PO BID 180 caps 3RF lisinopril 20 mg PO DAILY 90 tabs 3RF Coding Level of Care Code Est Pt Level 5 (55496) Diagnoses Neck pain on left side M54.2 Primary hypertension I10 Hypertension type: primary hypertension Post herpetic neuralgia B02.29 Additional Codes MINDY-7 Assessment Billing - MINDY-7 Assessment Tool: MINDY-7 Assessment 39131 ([id number])
[2023-09-10 14:52] VITALS: BP 138/70; PULSE 72; RESP 13; O2SAT 96; BMI 24.9
== END 2023-09-10 15:33 | disposition home or self-care (01) ==
PROVIDERS: PCP Internal Medicine; Visit Provider Internal Medicine
DX: M54.2 Cervicalgia (principal); I10 Essential (primary) hypertension; B02.29 Other postherpetic nervous system involvement
CPT/HCPCS: 99214

== ENCOUNTER 2023-09-23 11:41 | Outpatient (REF) | payer MEDICARE, SELFPAY ==
--- NOTE | ~2023-09-23 | XR_ITS ---
EXAMINATION: XR CERVICAL SPINE CLINICAL INFORMATION: Cervicalgia. COMPARISON: None available. TECHNIQUE: 3 views of the cervical spine were obtained. FINDINGS: There is mild bony demineralization. At C2-C3 and C3-C4, there are 2 mm retrolistheses. At C5-C6, there is moderately severe disc space narrowing. At C6-C7, there is mild disc space narrowing. There is endplate arthropathy at C5-C6 and C6-C7. The posterior elements are intact. The dens is intact. No prevertebral soft tissue swelling is seen. XR/XR cervical spine 3V IMPRESSION: There is mild degenerative disc disease at C2-C3, C3-C4 and C6-C7, and moderately severe degenerative disc disease is seen at C5-C6.
== END 2023-09-23 11:42 | disposition home or self-care (01) ==
LOC: HO.XRAY 11:41
PROVIDERS: PCP Internal Medicine; Visit Provider Internal Medicine
DX: M54.2 Cervicalgia (principal)
CPT/HCPCS: 72040

== ENCOUNTER 2023-10-11 16:11 | Outpatient (AMB) | payer MEDICARE, SELFPAY ==
--- NOTE | 2023-10-11 16:12 | A.OFFPC_ITS ---
Intake Visit Reasons: Go over results for X-ray done 09/22 Allergies Penicillins Allergy (Verified 09/10/23 14:57) RASH, REDNESS Tobacco use date assessed: 09/10/23 Dental Screening Dental Screen Date: 09/10/23 HPI HPI Comments History of Present Illness Details Patient is a 78 year old female with a past medical history of hypertension GERD, osteoporosis, frequent UTIs presenting for follow up CV: Blood pressure adequately controlled. Declines statin therapy. She was having LE edema. Following with urology for frequent UTIs MSK: Osteoporosis. Was on fosamax x years was not helping readings so stopped. Takes calcium and vitamin D Left neck pain for the 2 years. She went to the dentist -no tooth problems though likely shingles.. Went to the ENT. Ear doctor said no ear issue. ER doctor thought shingles. ROS see hpi PHYSICAL EXAM: GENERAL: Alert and oriented x 3. NAD EYES: EOMI. Anicteric. HENT: Moist mucous membranes. No scleral icterus. No cervical lymphadenopathy. LUNGS: Clear to auscultation bilaterally. CARDIOVASCULAR: Regular rate and rhythm. No murmur. No JVD. ABDOMEN: Soft, non-tender +bs EXTREMITIES: No edema. Non-tender. SKIN: No rashes or lesions. Warm. NEUROLOGIC: No focal neurological deficits. CN II-XII grossly intact PSYCHIATRIC: Cooperative. Appropriate mood and affect [facility] Medical History (Updated 10/25/23 @ 21:40 by Josie Morley MD) Shingles Renal cyst Osteoporosis GERD (gastroesophageal reflux disease) Hypertension Surgical History History of cataract surgery History of tubal ligation Hx laparoscopic cholecystectomy Family History (Updated 09/10/23 @ 15:08 by Tiara Constantino CMA) Mother Diabetes Father Cardiovascular disease Sister Cancer Sister Cancer Sister Cancer Social History (Updated 09/10/23 @ 15:09 by Tiara Constantino CMA) Household Members: Spouse Housing: House 75 years or older and lives alone: No Alcohol intake: current Alcohol intake frequency: holidays/special occasions only Patient Tobacco Use Status: Never used Tobacco e-Cigarette/Vaping Use: Never Used service: No Current occupational status: retired Cognitive needs: No Hearing needs: No Vision needs: No Questionnaire Thrive Questionnaire Date Thrive assessed: 09/10/23 MINDY-7 AMB Questionnaire MINDY-7 Date MINDY - 7 assessed: 09/10/23 Source: Developed by Drs. Amadou Harding, Yakelin Chávez, Pedro Anne and colleagues, with an educational brandon from [email or web address]. Physical exam (Primary Care) Tobacco/Smoking Status: Tobacco use Status Tobacco use date assessed 09/10/23 10/11/23 16:13 Patient Tobacco Use Status Never used Tobacco 10/11/23 16:13 e-Cigarette/Vaping Use Never Used 10/11/23 16:13 Thrive Assessment: Date of Thrive Assessment Date Thrive assessed 09/10/23 10/11/23 16:13 Telehealth Telehealth Telehealth Platform: Telephone Location of provider rendering services: practice address Location of patient: address on file Patient Identification confirmed using: Name, : Yes Telehealth method: voice only Patient verbally consented to treatment: Yes Patient verbally consented to billing insurance company: Yes Patient informed of any privacy concerns related to visit: Yes Assessment and Plan Assessment & Plan (1) Hypertension: Code(s): I10 - Essential (primary) hypertension Qualifiers: Hypertension type: primary hypertension Qualified Code(s): I10 - Essential (primary) hypertension Plan: adequately controlled on current medications (2) Osteoporosis: Code(s): M81.0 - Age-related osteoporosis without current pathological fracture Qualifiers: Osteoporosis type: age-related Presence of current pathological fractur e: without current pathological fracture Qualified Code(s): M81.0 - Age-related osteoporosis without current pathological fracture Coding Level of Care Code Est Pt Level 5 (92185) Diagnoses Primary hypertension I10 Hypertension type: primary hypertension Age-related osteoporosis without current pathological fracture M81.0 Osteoporosis type: age-related Presence of current pathological fracture: without current pathological fr acture
== END 2023-10-11 17:12 | disposition home or self-care (01) ==
LOC: HO.HMGFM 16:12
PROVIDERS: PCP Internal Medicine; Visit Provider Internal Medicine
DX: I10 Essential (primary) hypertension (principal); M81.0 Age-related osteoporosis without current pathological fracture
CPT/HCPCS: 99441

== ENCOUNTER 2023-12-28 08:23 | Outpatient (AMB) | payer MEDICARE, SELFPAY ==
--- NOTE | 2023-12-28 08:28 | MHC.PC.OV ---
Vital Signs 12/28/23 08:32 12/28/23 08:39 Height 5 ft 6 in Weight 156 lb 2 oz BMI 25.2 BP 142/72 H 132/62 Blood Pressure Location Lt brachial Lt brachial Position Sitting Sitting Respiration 14 Pulse 62 Pulse Source Pulse Oximeter Pulse Oximetry (%) 99 Oxygen Delivery Method Room Air Intake Visit Reasons: CPE/AWV Intake Note: Medical wellness visit Financial Assistant Required: No Allergies Penicillins Allergy (Verified 12/28/23 08:30) RASH, REDNESS Medication List - Last Reconciled 12/28/23 by Josie Morley MD lisinopril 20 mg PO DAILY Tobacco use date assessed: 12/28/23 Dental Screening Dental Screen Date: 09/10/23 HPI HPI Comments History of Present Illness Details Patient is a 78 year old female with a past medical history of hypertension GERD, osteoporosis, frequent UTIs presenting for AWV Care team: Dr Brito Medications reviewed no changes Patient had living will HRA reviewed-independent in all ADLS. No issues identified. Scanned CV: Blood pressure adequately controlled. Hyperlipidemia, Declines statin therapy. Following with urology for frequent UTIs. Following with Dr Brito MSK: Osteoporosis. Was on fosamax x years was not helping readings so stopped. Takes calcium and vitamin D DDD-cervical spine. Takes gabapentin infrequently as needed. Causes episodic left neck pain- She went to the dentist -no tooth problems though likely shingles.. Went to the ENT. Ear doctor said no ear issue. ER doctor thought shingles. Mammo-Due Colonoscopy-cologuard last year normal. All colonoscopys to date have been normal ROS see hpi PHYSICAL EXAM: GENERAL: Alert and oriented x 3. NAD EYES: EOMI. Anicteric. HENT: Moist mucous membranes. No scleral icterus. No cervical lymphadenopathy. LUNGS: Clear to auscultation bilaterally. CARDIOVASCULAR: Regular rate and rhythm. No murmur. No JVD. ABDOMEN: Soft, non-tender +bs EXTREMITIES: No edema. Non-tender. SKIN: No rashes or lesions. Warm. NEUROLOGIC: No focal neurological deficits. CN II-XII grossly intact PSYCHIATRIC: Cooperative. Appropriate mood and affect [facility] Medical History (Updated 12/28/23 @ 09:09 by Josie Morley MD) Shingles Renal cyst Osteoporosis GERD (gastroesophageal reflux disease) Hypertension Surgical History History of cataract surgery History of tubal ligation Hx laparoscopic cholecystectomy Family History (Updated 09/10/23 @ 15:08 by Tiara Constantino CMA) Mother Diabetes Father Cardiovascular disease Sister Cancer Sister Cancer Sister Cancer Social History (Updated 09/10/23 @ 15:09 by Tiara Constantino CMA) Household Members: Spouse Housing: House Alcohol intake: current Alcohol intake frequency: holidays/special occasions only Patient Tobacco Use Status: Never used Tobacco e-Cigarette/Vaping Use: Never Used service: No Current occupational status: retired Cognitive needs: No Hearing needs: No Vision needs: No Questionnaire PHQ-9 Over the last 2 weeks, how often have you been bothered by any of the following problems? 1. Little interest or pleasure in doing things: not at all 2. Feeling down, depressed, or hopeless: not at all 3. Trouble falling or staying asleep, or sleeping too much: not at all 4. Feeling tired or having little energy: not at all 5. Poor appetite or overeating: not at all 6. Feeling bad about yourself - or that you are a failure or have let yourself or your family down: not at all 7. Trouble concentrating on things, such as reading the newspaper or watching television: not at all 8. Moving or speaking so slowly that other people could have noticed. Or the opposite - being so fidgety or restless that you have been moving around a lot more than usual: not at all 9. Thoughts that you would be better off or of hurting yourself in some way: not at all Total score: 0 Depression Screening Interpretation: Negative (neg) Depression Screening Done: Yes 75495 - PHQ-9 Billing: Yes Source: Developed by Drs. Amadou Harding, Yakelin Chávez, Pedro Anne and colleagues, with an educational brandon from [employer]. Thrive Questionnaire Date Thrive assessed: 12/28/23 I am a: Patient What is your living situation today?: I have a steady place to live Within the past 12 months, did the food you bought not last and you didn't have the money to get more?: Often true Within the past 12 months, did you worry whether your food would run out before you got money to buy more?: Sometimes True Do you have trouble paying for medicines?: No Do you have trouble getting transportation to medical appointments?: No Do you have trouble paying your heating and electricity bill?: No Do you have trouble taking care of your child, family member or friend?: No Do you have trouble with day-to-day activities such as bathing, preparing meals, shopping, managing finances, etc.?: No Are you currently unemployed and looking for a job?: No Are you interested in more education?: No Please select the resources that you would like help with: None Currently or been in a relationship where the following occur: No concerns reported THRIVE Score: 2 AUDIT C Alcohol Use Questionnaire (AUDIT-C) 1. How often do you have a drink containing alcohol?: Monthly or less 2. How many drinks containing alcohol do you have on a typical day when you are drinking?: 3 or 4 3. How often do you have six or more drinks on one occasion?: Never Total Score: 2 MINDY-7 AMB Questionnaire MINDY-7 Date MINDY - 7 assessed: 12/28/23 Feeling nervous, anxious, or on edge: 0 = Not at all Not being able to stop or control worryin = Not at all Worrying too much about different things: 0 = Not at all Trouble relaxin = Not at all Being so restless that it is hard to sit still: 0 = Not at all Becoming easily annoyed or irritable: 0 = Not at all Feeling afraid as if something awful might happen: 0 = Not at all Total MINDY-7 score (0-4 normal; 5-9 mild; 10-14 moderate; 15-21 severe): 0 Source: Developed by Drs. Amadou Harding, Yakelin Chávez, Pedro Anne and colleagues, with an educational brandon from [employer]. MINDY-7 Assessment Billing MINDY-7 Assessment Tool: MINDY-7 Assessment 29371 Physical exam (Primary Care) Vital Signs: Last Vital Signs Pulse 62 12/28/23 08:32 Resp 14 12/28/23 08:32 BP 132/62 12/28/23 08:39 Pulse Ox 99 12/28/23 08:32 Oxygen Delivery Method Room Air 12/28/23 08:32 BMI result Body Mass Index 25.2 Tobacco/Smoking Status: Tobacco use Status Tobacco use date assessed 12/28/23 12/28/23 08:41 Patient Tobacco Use Status Never used Tobacco 12/28/23 08:29 e-Cigarette/Vaping Use Never Used 12/28/23 08:29 PHQ-9: PHQ-9 Score PHQ-9: Total score 0 12/28/23 08:42 Depression Screening Interpretation: Negative (neg) Thrive Assessment: Date of Thrive Assessment Date Thrive assessed 12/28/23 12/28/23 08:42 Currently or been in a relationship where the following occur: No concerns reported Coding Level of Care Code Est Pt Level 3 (04611) Diagnoses Encounter for annual wellness visit (AWV) in Medicare patient Z00.00 Additional Codes MINDY-7 Assessment Billing - MINDY-7 Assessment Tool: MINDY-7 Assessment 67685 ([id number]) Assessment & Plan Assessment & Plan (1) Encounter for annual wellness visit (AWV) in Medicare patient: Code(s): Z00.00 - Encounter for general adult medical examination without abnormal findings Category: Medical Plan: AWV-subsequent Patient is doing well, independent in ADLS, medication compliant. No depression, etoh misuse, negative fall. care team reviewed Continue mammos given family history Orders: Orders UA CC w/rflx Micro + Cult Today I10 - Essential (primary) hypertension, R30.0 - Dysuria, Z00.00 - Encounter for general adult medical examination without abnormal findings, Z13.220 - Encounter for screening for lipoid disorders Complete Blood Count Auto Diff Today I10 - Essential (primary) hypertension, R30.0 - Dysuria, Z00.00 - Encounter for general adult medical examination without abnormal findings, Z13.220 - Encounter for screening for lipoid disorders Comprehensive Met. Panel Today I10 - Essential (primary) hypertension, R30.0 - Dysuria, Z00.00 - Encounter for general adult medical examination without abnormal findings, Z13.220 - Encounter for screening for lipoid disorders MM screening mammo BI Today Z12.31 - Encounter for screening mammogram for malignant neoplasm of breast, Z80.3 - Family history of malignant neoplasm of breast Lipid Panel Today I10 - Essential (primary) hypertension, R30.0 - Dysuria, Z00.00 - Encounter for general adult medical examination without abnormal findings, Z13.220 - Encounter for screening for lipoid disorders TSH reflex Free T4 Today I10 - Essential (primary) hypertension, R30.0 - Dysuria, Z00.00 - Encounter for general adult medical examination without abnormal findings, Z13.220 - Encounter for screening for lipoid disorders
[2023-12-28 08:32] VITALS: BP 142/72; PULSE 62; RESP 14; O2SAT 99; BMI 25.2
[2023-12-28 08:39] VITALS: BP 132/62
== END 2023-12-28 09:19 | disposition home or self-care (01) ==
PROVIDERS: PCP Internal Medicine; Visit Provider Internal Medicine
DX: Z00.00 Encounter for general adult medical examination without abnormal findings (principal)

== ENCOUNTER 2023-12-28 09:25 | Outpatient (REF) | payer MEDICARE, SELFPAY ==
[2023-12-28 11:19] LABS: MANUAL DIFF FLAG NO
[2023-12-28 11:38] LABS: Basophils Absolute Auto 0.1 X10*3/uL (0.0-0.2); Basophils Percent Auto 1.7 % (0-2); Eosinophils Absolute Auto 0.4 X10*3/uL (0.0-0.4); Eosinophils Percent Auto 5.1 % (0-4); Hematocrit 41.2 % (37.0-47.0); Hemoglobin 13.9 g/dl (12.0-16.0); Imm Gran Abs Auto 0.03 X10*3/uL (0.00-0.03); Imm Gran Pct Auto 0.4 % (0.0-0.4); Lymphocytes Absolute Auto 1.9 X10*3/uL (1.2-4.9); Lymphocytes Percent Auto 26.1 % (20-40); Mean Corpuscular HGB Conc 33.7 g/dl (31.0-35.0); Mean Corpuscular Hemoglobin 30.5 pg (27.0-33.0); Mean Corpuscular Volume 90.5 fL (80.0-98.0); Mean Platelet Volume 9.6 fL (9.4-12.3); Monocytes Absolute Auto 0.6 X10*3/uL (0.1-1.2); Monocytes Percent Auto 7.9 % (2-11); Neutrophils Absolute Auto 4.3 x10*3/uL (2.0-8.3); Neutrophils Percent Auto 58.8 % (45-73); Platelet Count 302 X10*3/uL (160-400); Red Blood Count 4.55 X10*6/uL (4.20-5.50); White Blood Count 7.2 X10*3/uL (4.8-10.8)
[2023-12-28 12:02] LABS: Alanine Aminotransferase 25 U/L (0-31); Albumin Level 4.3 g/dL (3.5-5.0); Alkaline Phosphatase 72 U/L (39-117); Anion Gap 13 (12-20); Aspartate Amino Transferase 28 U/L (5-31); Bilirubin Total 0.4 mg/dL (0.0-1.0); Blood Urea Nitrogen 24 mg/dL (9-16); Calcium 9.9 mg/dL (8.4-10.2); Carbon Dioxide 27 mmol/L (22-29); Chloride 106 mmol/L (96-108); Cholesterol 225 mg/dL (<200); Estimated Glomerular Filt Rate 47; Glucose Random 103 mg/dL (60-115); HDL Cholesterol 56 mg/dL (>40); LDL Cholesterol Calculated 143 mg/dL (<100); Sodium 141 mmol/L (135-145); Total Protein 7.5 g/dL (6.5-8.0); Triglycerides 130 mg/dL (<150)
[2023-12-28 12:09] LABS: TSH reflex Free T4 1.68 uIU/mL (0.32-4.0)
[2023-12-28 14:49] LABS: Appearance Urine Cloudy; Color Urine Yellow; Glucose Urine UA Negative (Negative); Leukocyte Esterase Urine Large (3+) (Negative); Nitrite Urine Negative (Negative); UMIC TRIGGER UACC YES; Urine Blood Trace (Negative); Urine Ketones Negative (Negative); Urine Protein Negative (Neg-Trace)
[2023-12-28 14:53] LABS: Bacteria Urine 4+ (None Seen); Hyaline Casts Urine 0-2 /LPF (0-2); RBC Urine 0-2 /HPF (0-2); Squamous Epithelial Cell Urine 0-2 /HPF (0-2); UACC Culture Trigger YES; WBC Urine >50 /HPF (0-5)
== END 2023-12-28 09:26 | disposition home or self-care (01) ==
LOC: HO.WFDLDS 09:25
PROVIDERS: Visit Provider Internal Medicine
DX: Z00.00 Encounter for general adult medical examination without abnormal findings (principal); I10 Essential (primary) hypertension; R30.0 Dysuria; Z13.220 Encounter for screening for lipoid disorders
CPT/HCPCS: 36415; 80053; 80061; 81001; 84443; 85025; 87086; 87088; 87186; 96127

== ENCOUNTER 2024-01-04 13:06 | Outpatient (REF) | payer MEDICARE, SELFPAY ==
--- NOTE | ~2024-01-04 | MM_ITS ---
EXAMINATION: MM SCREENING DIGITAL BREAST TOMOSYNTHESIS, BILATERAL CLINICAL INFORMATION: Screening. Asymptomatic. COMPARISON: Mammography: Comparison is made with available priors TECHNIQUE: Digital breast mammography with tomosynthesis is performed in both the craniocaudal and mediolateral oblique views along with computer-aided detection (CAD). FINDINGS: There are scattered areas of fibroglandular density (ACR BI-RADS breast composition Category b). There are no significant masses, abnormal calcifications, or other abnormalities. MM/MM tomosynthesis screening BI IMPRESSION: No mammographic evidence of malignancy. ASSESSMENT: BI-RADS BI-RADS 1 - Negative RECOMMENDATION: Routine annual mammography screening. 1 year F/U This examination should not preclude the clinical evaluation of a suspicious palpable abnormality. This patient's information was entered into a reminder system with a target due date for their next mammogram. Electronically signed by: Rachel Haley DO 01/12/2024 10:45 AM RENZO
== END 2024-01-04 13:07 | disposition home or self-care (01) ==
LOC: HO.MAMMO 13:06
PROVIDERS: PCP Internal Medicine; Visit Provider Internal Medicine
DX: Z12.31 Encounter for screening mammogram for malignant neoplasm of breast (principal)
CPT/HCPCS: 77063; 77067

== ENCOUNTER → 2024-01-04 13:15 | Outpatient (BNV) | payer MEDICARE, SELFPAY | PROVIDERS: PCP Internal Medicine; Visit Provider Internal Medicine | DX: Z12.31 Encounter for screening mammogram for malignant neoplasm of breast (principal) | CPT/HCPCS: 77063; 77067 ==

== ENCOUNTER 2024-07-03 10:37 | Outpatient (AMB) | payer MEDICARE, SELFPAY ==
--- NOTE | 2024-07-03 10:55 | A.OFFPC_ITS ---
Vital Signs 07/03/24 10:59 Height 5 ft 6 in Weight 156 lb 2 oz BMI 25.2 BP 116/68 Blood Pressure Location Lt brachial Position Sitting Respiration 14 Pulse 64 Pulse Source Pulse Oximeter Pulse Oximetry (%) 97 Oxygen Delivery Method Room Air Intake Visit Reasons: htn Intake Note: Follow up htn Radiology Ct Technologist Required: No Allergies Penicillins Allergy (Verified 07/03/24 10:56) RASH, REDNESS Tobacco use date assessed: 07/03/24 Fall risk assessment: No Falls in past year Last assessed Fall Risk: 07/03/24 Dental Screening Dental Screen Date: 07/03/24 Did you have a dental visit in the last 12 months?: No Did you have a dental problem in the last 6 months where you did not have access to dental care?: No Was dental information given to patient?: Patient declined (has dentures) HPI HPI Comments History of Present Illness Details Patient is an 79 year old female with a past medical history of hypertension GERD, osteoporosis, frequent UTIs presenting for follow up CV: Blood pressure well controlled. Hyperlipidemia, Declines statin therapy. Following with urology for frequent UTIs. Following with Dr Daryl CHRISTENSEN: Osteoporosis. Was on fosamax x years was not helping readings so stopped. Takes calcium and vitamin D DDD-cervical spine. Takes gabapentin infrequently as needed. Causes episodic left neck pain- She went to the dentist -no tooth problems though likely shingles.. Went to the ENT. Ear doctor said no ear issue. ER doctor thought shingles. Mammo-12/2023. Colonoscopy-cologuard last year normal. All colonoscopys to date have been norm al ROS see hpi PHYSICAL EXAM: GENERAL: Alert and oriented x 3. NAD EYES: EOMI. Anicteric. HENT: Moist mucous membranes. No scleral icterus. No cervical lymphadenopathy. LUNGS: Clear to auscultation bilaterally. CARDIOVASCULAR: Regular rate and rhythm. No murmur. No JVD. ABDOMEN: Soft, non-tender +bs EXTREMITIES: No edema. Non-tender. SKIN: No rashes or lesions. Warm. NEUROLOGIC: No focal neurological deficits. CN II-XII grossly intact PSYCHIATRIC: Cooperative. Appropriate mood and affect [facility] Medical History Shingles Renal cyst Osteoporosis GERD (gastroesophageal reflux disease) Hypertension Surgical History History of cataract surgery History of tubal ligation Hx laparoscopic cholecystectomy Family History Mother Diabetes Father Cardiovascular disease Sister Cancer Sister Cancer Sister Cancer Social History Household Members: Spouse Housing: House 75 years or older and lives alone: No Alcohol intake: current Alcohol intake frequency: holidays/special occasions only Patient Tobacco Use Status: Former Tobacco user (quit 35 years ago) Cigarette Packs Per Day: 0.5 Years Smoked: 15 e-Cigarette/Vaping Use: Never Used service: No Current occupational status: retired Cognitive needs: No Hearing needs: No Vision needs: No Questionnaire PHQ-9 Over the last 2 weeks, how often have you been bothered by any of the following problems? 1. Little interest or pleasure in doing things: not at all 2. Feeling down, depressed, or hopeless: not at all 3. Trouble falling or staying asleep, or sleeping too much: not at all 4. Feeling tired or having little energy: not at all 5. Poor appetite or overeating: not at all 6. Feeling bad about yourself - or that you are a failure or have let yourself or your family down: not at all 7. Trouble concentrating on things, such as reading the newspaper or watching television: not at all 8. Moving or speaking so slowly that other people could have noticed. Or the opposite - being so fidgety or restless that you have been moving around a lot more than usual: not at all 9. Thoughts that you would be better off or of hurting yourself in some way: not at all Total score: 0 Depression Screening Interpretation: Negative Depression Screening Done: Yes 98979 - PHQ-9 Billing: Yes Source: Developed by Drs. Amadou Harding, Yakelin Chávez, Pedro Anne and colleagues, with an educational brandon from [employer]. Thrive Questionnaire Date Thrive assessed: 07/03/24 I am a: Patient What is your living situation today?: I have a steady place to live Within the past 12 months, did the food you bought not last and you didn't have the money to get more?: Never true Within the past 12 months, did you worry whether your food would run out before you got money to buy more?: Never true Do you have trouble paying for medicines?: No Do you have trouble getting transportation to medical appointments?: No Do you have trouble paying your heating and electricity bill?: No Do you have trouble taking care of your child, family member or friend?: No Do you have trouble with day-to-day activities such as bathing, preparing meals, shopping, managing finances, etc.?: No Are you currently unemployed and looking for a job?: No Are you interested in more education?: No Please select the resources that you would like help with: None Currently or been in a relationship where the following occur: No concerns reported THRIVE Score: 0 AUDIT C Alcohol Use Questionnaire (AUDIT-C) 1. How often do you have a drink containing alcohol?: Monthly or less 2. How many drinks containing alcohol do you have on a typical day when you are drinking?: 1 or 2 3. How often do you have six or more drinks on one occasion?: Never Total Score: 1 MINDY-7 AMB Questionnaire MINDY-7 Date MINDY - 7 assessed: 07/03/24 Feeling nervous, anxious, or on edge: 0 = Not at all Not being able to stop or control worryin = Not at all Worrying too much about different things: 0 = Not at all Trouble relaxin = Not at all Being so restless that it is hard to sit still: 0 = Not at all Becoming easily annoyed or irritable: 0 = Not at all Feeling afraid as if something awful might happen: 0 = Not at all Total MINDY-7 score (0-4 normal; 5-9 mild; 10-14 moderate; 15-21 severe): 0 Source: Developed by Drs. Amadou Harding, Yakelin Chávez, Pedro Anne and colleagues, with an educational brandon from [employer]. MINDY-7 Assessment Billing MINDY-7 Assessment Tool: MINDY-7 Assessment 11574 Physical exam (Primary Care) Vital Signs: Last Vital Signs Pulse 64 07/03/24 10:59 Resp 14 07/03/24 10:59 BP 116/68 07/03/24 10:59 Pulse Ox 97 04/28/25 10:59 Oxygen Delivery Method Room Air 07/03/24 10:59 BMI result Body Mass Index 25.2 Tobacco/Smoking Status: Tobacco use Status Tobacco use date assessed 07/03/24 07/03/24 11:01 Patient Tobacco Use Status Former Tobacco user (quit 35 07/03/24 11:01 years ago) e-Cigarette/Vaping Use Never Used 07/03/24 11:01 PHQ-9: PHQ-9 Score PHQ-9: Total score 0 07/03/24 11:01 Depression Screening Interpretation: Negative Thrive Assessment: Date of Thrive Assessment Date Thrive assessed 07/03/24 07/03/24 11:01 Currently or been in a relationship where the following occur: No concerns reported Coding Level of Care Code Est Pt Level 3 (97933) Complex EM visit Add On G2211 Diagnoses Hyperlipidemia, unspecified hyperlipidemia type E78.5 Hyperlipidemia type: unspecified Primary hypertension I10 Hypertension type: primary hypertension Additional Codes MINDY-7 Assessment Billing - MINDY-7 Assessment Tool: MINDY-7 Assessment 84765 ([id number]) PHQ-9 - 07237 - PHQ-9 Billing: Yes ([id number]) Assessment & Plan Assessment & Plan (1) Hyperlipidemia: Code(s): E78.5 - Hyperlipidemia, unspecified Category: Medical Qualifiers: Hyperlipidemia type: unspecified Qualified Code(s): E78.5 - Hyperlipidemia, unspecified (2) Hypertension: Code(s): I10 - Essential (primary) hypertension Category: Medical Qualifiers: Hypertension type: primary hypertension Qualified Code(s): I10 - Essential (primary) hypertension Plan Hypertension-adequately controlled on current medications. Labs ordered Hyperlipidemia-recheck. Carotid u/s ordered. Frequent UTI-follows with urology Orders: Orders Lipid Panel Today I10 - Essential (primary) hypertension, Z13.220 - Encounter for screening for lipoid disorders Comprehensive Met. Panel Today I10 - Essential (primary) hypertension, Z13.220 - Encounter for screening for lipoid disorders US carotid duplex BI Today E78.5 - Hyperlipidemia, unspecified, M54.2 - Cervicalgia
[2024-07-03 10:59] VITALS: BP 116/68; PULSE 64; RESP 14; O2SAT 97; BMI 25.2
== END 2024-07-03 11:21 | disposition home or self-care (01) ==
LOC: HO.HMCFM 10:38
PROVIDERS: PCP Internal Medicine; Visit Provider Internal Medicine
DX: E78.5 Hyperlipidemia, unspecified (principal); I10 Essential (primary) hypertension

== ENCOUNTER → 2024-07-03 10:37 | Outpatient (BNVA) | payer MEDICARE, SELFPAY | PROVIDERS: PCP Internal Medicine; Visit Provider Internal Medicine | DX: I10 Essential (primary) hypertension (principal); K21.9 Gastro-esophageal reflux disease without esophagitis; E78.5 Hyperlipidemia, unspecified; M81.0 Age-related osteoporosis without current pathological fracture; M54.2 Cervicalgia; Z87.440 Personal history of urinary (tract) infections | CPT/HCPCS: 96127; 99212 ==

== ENCOUNTER 2024-07-04 08:47 | Outpatient (REF) | payer MEDICARE, SELFPAY ==
[2024-07-04 11:38] LABS: Appearance Urine Turbid; Color Urine Yellow; Glucose Urine UA Negative (Negative); Leukocyte Esterase Urine Large (3+) (Negative); Nitrite Urine Negative (Negative); PH 6.5 (5.0-9.0); Specific Gravity - Urine 1.015 (1.005-1.025); UMIC TRIGGER UACC YES; Urine Blood Moderate (2+) (Negative); Urine Ketones Negative (Negative); Urine Protein 30 (1+) mg/dL (Neg-Trace)
[2024-07-04 11:42] LABS: Bacteria Urine 4+ (None Seen); Hyaline Casts Urine 0-2 /LPF (0-2); UACC Culture Trigger YES; WBC Urine >50 /HPF (0-5)
[2024-07-04 12:07] LABS: Alanine Aminotransferase 24 U/L (0-31); Albumin Level 4.1 g/dL (3.5-5.0); Alkaline Phosphatase 88 U/L (39-117); Anion Gap 11 (12-20); Aspartate Amino Transferase 25 U/L (5-31); Bilirubin Total 0.4 mg/dL (0.0-1.0); Blood Urea Nitrogen 16 mg/dL (9-16); Carbon Dioxide 26 mmol/L (22-29); Chloride 107 mmol/L (96-108); Cholesterol 200 mg/dL (<200); Estimated Glomerular Filt Rate > 60; Glucose Random 102 mg/dL (60-115); HDL Cholesterol 47 mg/dL (>40); LDL Cholesterol Calculated 126 mg/dL (<100); Potassium 4.4 mmol/L (3.3-5.1); Sodium 140 mmol/L (135-145); Total Protein 7.4 g/dL (6.5-8.0); Triglycerides 135 mg/dL (<150)
== END 2024-07-04 08:48 | disposition home or self-care (01) ==
LOC: HO.WFDLDS 08:47
PROVIDERS: Visit Provider Internal Medicine
DX: Z00.00 Encounter for general adult medical examination without abnormal findings (principal); I10 Essential (primary) hypertension; R30.0 Dysuria; Z13.220 Encounter for screening for lipoid disorders
CPT/HCPCS: 36415; 80053; 80061; 81001; 87086; 87088; 87186

== ENCOUNTER 2024-07-11 10:17 | Outpatient (REF) | payer MEDICARE, SELFPAY ==
--- NOTE | ~2024-07-11 | US_ITS ---
EXAMINATION: BILATERAL CAROTID ULTRASOUND WITH DOPPLER HISTORY: M54.2 - Cervicalgia, lt side pain, hyperlipidemia COMPARISON: There are no prior studies for comparison. TECHNIQUE: Real time and Color and Spectral doppler ultrasonography of the carotid and vertebral arteries was performed in multiple planes. FINDINGS: There is a small amount of plaque in the bilateral internal carotid arteries. And irregular heartbeat is noted. VERTEBRAL FLOW DIRECTION: Antegrade bilaterally. PEAK SYSTOLIC VELOCITIES (in cm/sec): RIGHT: CCA: Prox: 62.7 Dist: 54.4 ICA: Prox: 72.2 Mid: 91.9 Dist: 102 ICA/CCA Ratio: 1.62 ECA: 97.5 Peak ICA EDV: 29.2 LEFT: CCA: Prox: 69.4 Dist: 79.9 ICA: Prox: 45.7 Mid: 67.0 Dist: 88.9 ICA/CCA Ratio: 1.11 ECA: 47.0 Peak ICA EDV: 23.0 US/US carotid duplex BI IMPRESSION: 1. Findings consistent with 0-49% stenosis of the bilateral internal carotid arteries. 2. Possible arrhythmia. Correlation with EKG is recommended. Electronically signed by: Amadou Eli MD 07/11/2024 11:15 AM EDT
== END 2024-07-11 10:18 | disposition home or self-care (01) ==
LOC: HO.US 10:17
PROVIDERS: PCP Internal Medicine; Visit Provider Internal Medicine
DX: E78.5 Hyperlipidemia, unspecified (principal); M54.2 Cervicalgia; I65.23 Occlusion and stenosis of bilateral carotid arteries
CPT/HCPCS: 93880

== ENCOUNTER → 2024-07-11 10:19 | Outpatient (BNV) | payer MEDICARE, SELFPAY | PROVIDERS: PCP Internal Medicine; Visit Provider Radiology Diagnostic Radiology | DX: M54.2 Cervicalgia (principal); E78.5 Hyperlipidemia, unspecified | CPT/HCPCS: 93880 ==

== ENCOUNTER 2024-12-06 11:04 | Outpatient (AMB) | payer MEDICARE, SELFPAY ==
--- OUTSIDE RECORDS SUMMARY | 2022-08-04 10:02 | XMS_ITS | Encounter Summary ---
Author Organization [facility] Address [address] [place] [address] Phone Care Team Providers Care Inspector Hairspring Truing Name Role Phone Josie Patel MD Primary Care Provider Encounter Details Date Type Department Care Team (Late st Contact Info) Description 08/04/2022 10:02 AM EDT Hospital Encounter [facility] [address] [place] [address] [phone] Lottie Bah, TALENT ACQUISITION MANAGER [address] [place] [address] [email or web address] Social History Tobacco Use Types Packs/Day Years [...] fracture or dislocation. us Lottie B Whitehill TALENT ACQUISITION MANAGER IMG XR UPPER EXTREMITY Pat l Result documented in this encounter Visit Diagnoses Not on filedocumented in this encounter Care Teams Inspector Hairspring Truing Relationship Specialty Start Date End Date Josie Patel MD PCP - General Internal Medicine 08/04/22 10/15/24 documented as of this encounter Additional Source Comments The information contained in this document represents components of the legal health record. It is not the complete legal health record.[facility]
--- NOTE | 2024-12-06 11:06 | A.OFFPC_ITS ---
Vital Signs 12/06/24 11:09 Height 5 ft 6 in Weight 155 lb BMI 25.0 BP 118/80 Blood Pressure Location Rt brachial Position Sitting Respiration 14 Pulse 60 Pulse Source Pulse Oximeter Temp 98.1 F Temp Source Oral Pulse Oximetry (%) 98 Oxygen Delivery Method Room Air Intake Visit Reasons: R side jawline pain Intake Note: Jaw line pain right side Photograph Tinter Required: No Allergies Penicillins Allergy (Verified 12/06/24 11:06) RASH, REDNESS Medication List - Last Reconciled 12/06/24 by Gretchen Sommer PA-C lisinopril 20 mg PO DAILY multivitamin 1 tab PO DAILY Tobacco use date assessed: 12/06/24 Fall risk assessment: No Falls in past year Last assessed Fall Risk: 12/06/24 Dental Screening Dental Screen Date: 07/03/24 HPI R side jawline pain HPI Details Patient is an 79-year-old female with a significant past medical history of hypertension, hyperlipidemia, history of dental disease/abscess, frequent UTIs presenting today for an acute problem visit. She states that she has pain on the right side of her neck radiating up behind her ear. She says it feels like a sharp and shooting pain. Almost feels like electricity. It is worse if she moves her neck in a certain position. There was no dizziness, chest pain or shortness on breath with this. There has been no trauma. She noticed this on Wednesday when she woke up. She says that the muscles do not necessarily feel tight but when she touches her neck it can sometimes cause the pain or cause generalized pain. She denies any dental pain or ear pain. No sinus pain or pressure. No fevers or chills. She has not been sick recently. She does have bottom dentures and she states that she took them out to make sure that everything looked normal. She is scheduled to see her dentist soon. She says overall since the pain started it is getting a little bit better. Tylenol does appear to relieve it temporarily. It does not prevent the sharp shooting pain however. She was given gabapentin 300 mg in the past for neck pain and she did try this but it makes her feel too drowsy. Her blood pressure today in the office is 118/80. Compliant with lisinopril 20 mg. [facility] Medical History Shingles Renal cyst Osteoporosis GERD (gastroesophageal reflux disease) Hypertension Surgical History History of cataract surgery History of tubal ligation Hx laparoscopic cholecystectomy Family History Mother Diabetes Father Cardiovascular disease Sister Cancer Sister Cancer Sister Cancer Social History (Updated 12/06/24 @ 11:12 by Rylee Laguerre CMA) Household Members: Spouse Housing: House 75 years or older and lives alone: No Alcohol intake: current Alcohol intake frequency: holidays/special occasions only Patient Tobacco Use Status: Former Tobacco user (quit 35 years ago) Cigarette Packs Per Day: 0.5 Years Smoked: 15 e-Cigarette/Vaping Use: Never Used Second Hand Smoke Exposure: No service: No Current occupational status: retired Cognitive needs: No Hearing needs: No Vision needs: No Questionnaire Thrive Questionnaire Date Thrive assessed: 07/03/24 I am a: Patient What is your living situation today?: I have a steady place to live Within the past 12 months, did the food you bought not last and you didn't have the money to get more?: Never true Within the past 12 months, did you worry whether your food would run out before you got money to buy more?: Never true Do you have trouble paying for medicines?: No Do you have trouble getting transportation to medical appointments?: No Do you have trouble paying your heating and electricity bill?: No Do you have trouble taking care of your child, family member or friend?: No Do you have trouble with day-to-day activities such as bathing, preparing meals, shopping, managing finances, etc.?: No Are you currently unemployed and looking for a job?: No Are you interested in more education?: No Please select the resources that you would like help with: None Currently or been in a relationship where the following occur: No concerns reported THRIVE Score: 0 AUDIT C Alcohol Use Questionnaire (AUDIT-C) 1. How often do you have a drink containing alcohol?: Monthly or less 2. How many drinks containing alcohol do you have on a typical day when you are drinking?: 1 or 2 3. How often do you have six or more drinks on one occasion?: Never Total Score: 1 MINDY-7 AMB Questionnaire MINDY-7 Date MINDY - 7 assessed: 07/03/24 Source: Developed by Drs. Amadou Harding, Yakelin Chávez, Pedro Anne and colleagues, with an educational brandon from [employer]. Physical exam (Primary Care) Vital Signs: Last Vital Signs Temp 98.1 F 12/06/24 11:09 Pulse 60 12/06/24 11:09 Resp 14 12/06/24 11:09 BP 118/80 12/06/24 11:09 Pulse Ox 98 12/06/24 11:09 Oxygen Delivery Method Room Air 12/06/24 11:09 BMI result Body Mass Index 25.0 Tobacco/Smoking Status: Tobacco use Status Tobacco use date assessed 12/06/24 12/06/24 11:12 Patient Tobacco Use Status Former Tobacco user (quit 35 12/06/24 11:12 years ago) e-Cigarette/Vaping Use Never Used 12/06/24 11:12 Thrive Assessment: Date of Thrive Assessment Date Thrive assessed 07/03/24 12/06/24 11:08 Currently or been in a relationship where the following occur: No concerns reported Const Orientation/consciousness: patient oriented x3 HENMT Ears: hearing grossly normal bilaterally and TM's normal bilaterally Face and sinus: Yes sinuses nontender Mouth: Normal oral and palatal mucosa present and tongue normal Throat: Yes posterior oropharynx normal and Yes uvula midline Neck Other: Mild tenderness to palpation over the cervical paraspinous muscles. Full range of motion however lateral bending of the neck does elicit some discomfort on the right. Thyroid: Thyroid normal Carotids: no bruits Lymphatic: no lymphadenopathy noted Resp Auscultation: clear to auscultation bilaterally Cardio Rate: regular rate Rhythm: regular rhythm Heart sounds: S1 normal heart sound present and S2 normal heart sound present Skin General skin exam: no rashes or lesions noted Neuro General: patient oriented x3, gait normal and no focal motor deficits Results Reviewed Results Reviewed: There is mild bony demineralization. At C2-C3 and C3-C4, there are 2 mm retrolistheses. At C5-C6, there is moderately severe disc space narrowing. At C6-C7, there is mild disc space narrowing. There is endplate arthropathy at C5-C6 and C6-C7. The posterior elements are intact. The dens is intact. No prevertebral soft tissue swelling is seen. XR/XR cervical spine 3V IMPRESSION: There is mild degenerative disc disease at C2-C3, C3-C4 and C6-C7, and moderately severe degenerative disc disease is seen at C5-C6. US/US carotid duplex BI IMPRESSION: 1. Findings consistent with 0-49% stenosis of the bilateral internal carotid arteries. 2. Possible arrhythmia. Correlation with EKG is recommended. Coding Level of Care Code Est Pt Level 4 (27380) Complex EM visit Add On G2211 Diagnoses Neck pain on right side M54.2 Primary hypertension I10 Hypertension type: primary hypertension Assessment & Plan Assessment & Plan (1) Neck pain on right side: Code(s): M54.2 - Cervicalgia Category: Medical Plan: X-ray ordered. Reviewed last results with her and review of the carotid ultrasound EKG was completed today which did show sinus bradycardia rate of 52 beats per minute with nonspecific STT wave abnormalities. Sinus arrhythmia noted. It did not appear to be significantly changed from prior study. EKG left for Dr. Morley to interpret as well. We will trial prednisone taper and a lower dose of gabapentin. Advised short term follow up to be reassessed. Sooner if anything worsens or changes. (2) Hypertension: Code(s): I10 - Essential (primary) hypertension Category: Medical Qualifiers: Hypertension type: primary hypertension Qualified Code(s): I10 - Essential (primary) hypertension Plan: WNL. Continue current regimen Orders: Orders XR cervical spine 3V Today M54.2 - Cervicalgia Medications: New methylprednisolone (Medrol (Jesse)) PO PER PKG DIR for 6 days 21 ea 0RF gabapentin 100 mg PO BEDTIME 30 caps 0RF
[2024-12-06 11:09] VITALS: BP 118/80; PULSE 60; RESP 14; TEMP 36.7; O2SAT 98; BMI 25.0
--- OUTSIDE RECORDS SUMMARY | 2024-12-06 12:38 | XMS_ITS ---
Author Name [facility] Organization Unknown Care Team Organization Name Specialty Phone Email Start Date End Da te [facility] Termed, PROVIDER Primary Care 01/13/202210/06
--- OUTSIDE RECORDS SUMMARY | 2024-12-06 12:38 | XMS_ITS | Clinical Summary ---
Author Organization [facility] Address [address] [place] [phone] Phone Care Team Providers Care Label Tacker Name Role Phone Josie Patel MD Primary Care Provider Allergies Active Allergy Reactions Criticality Noted Date Comments Penicillins Rash Low 08/04/2022 Medications lisinopril (PRINIVIL,ZESTRI L) 10 MG tablet 07/07/2022 Act oksana lisinopril (PRINIVIL,ZESTRI L) 20 MG tablet Take 20 mg by mouth daily. 09/09/2024 Active Active Problems No known active problems Encounters Date Type Department Care Team Description 10/18/2024 Telephone [facility] at [address] [address] Kellie Jaime CNP 10/16/2024 1:00 PM EDT Office Visit [facility] at [address] [address] Karyn Rodas FNP Acute UTI (urinary tract infection) (Primary Dx) from Last 3 Months Immunizations Immunization Administration Dates Next Due INFLUENZA, SPLIT VIRUS, TRIVALENT PF 11/13/2014 INFLUENZA, SPLIT VIRUS, TRIV ALENT W/ PRESERVATIVE IM 11/25/2020,11/09/2018,12/04/2013,01/03 Influenza High-Dose Quadriva lent Preservative Free IM 12/11/2021 Influenza High-Dose Trivalen t Preservative Free IM 11/19/2017,11/06/2016,11/19/2015 Pneumococcal conjugate PCV13 10/19/2014 Pneumococcal polysaccharide PPSV23 12/10/2015, Td (adult),2 Lf Tetanus Toxo id, PF, Adsorbed 02/06/2007 Zoster live 12/07/2011 Zoster recombinant 03/29/2020,01/29/2020 Social History Tobacco Use Types Packs/Day Years Used Date Smoking Tobacco: Former Cigarettes Passive Smoke Exposure: Never Smokeless Tobacco: Never Tobacco Cessation:Counseling Given: Not Answered Education Answer Date Recorded Are you interested [...] on file Sexual Orientation Not on file Last Filed Vital Signs Vital Sign Reading Time Taken Comments Blood Pressure 139/85 10/16/2024 12:38 PM EDT Pulse 88 10/16/2024 12:38 PM EDT Temperature 36.4 C (97.6 F) 10/16/2024 12:38 PM EDT Respiratory Rate 16 10/16/2024 12:38 PM EDT Oxygen Saturation 99% 10/16/2024 12:38 PM EDT Inhaled Oxygen Concentration - - Weight 69.4 kg (153 lb) 10/16/2024 12:38 PM EDT Height - - Body Mass Index - - Plan of Treatment Health Maintenance Due Date Last Done Comments CREATININE LEVEL 1944 LIPID PANEL 1944 POTASSIUM LEVEL 1944 DEPRESSION SCREENING 1956 SMOKING Hx and SMOKELESS TOBACCO SCREENING 1957 OSTEOPOROSIS SCREENING INITIAL (ONE-TIME) 2009 Adult Td,Tdap Booster 02/06/2017 02/06/2007 INFLUENZA VACCINE (#1) 2024 , 12/09/2022, 12/11/2021, Additional history exists COVID-19 VACCINE ( season) 2024 11/19/2023, 12/09/2022, 12/11/2021, Additional history exists PNEUMOCOCCAL VACCINES (50+ years) Completed 12/10/2015, 10/19/2014, 11/09/2008 ZOSTER VACCINES Completed 03/29/2020, 01/07, 12/07/2011 RSV VACCINE Completed 01/06/2023 HEPATITIS A VACCINES Aged Out No long er eligible based on patient's age to complete this topic HIB VACCINES Aged Out No longer eligi ble based on patient's age to complete this topic MENINGOCOCCAL VACCINES (ACWY) Aged Out No longer eligible based on patient's age to complete this topic MENINGOCOCCAL VACCINES (B) Aged Out N o longer eligible based on patient's age to complete this topic Medical Devices Not on file Procedures Procedure Name Priority Date/Time Associated Diagnosis Comments URINE CULTURE Routine 10/16/2024 1:00 PM EDT Acute UTI (urinary tract infection) POCT URINE DIPSTICK Routine 10/16/2024 1 2:27 PM EDT Acute UTI (urinary tract infection) from Last 3 Months Results * (ABNORMAL) Urine Culture (10/16/2024 1:00 PM EDT) Special Requests None 10/16/2024 1:00 PM EDT [facility] Urine Culture >100,000 colony forming units per mL ENTEROBACTER CLOACAE COMPLEX(A) 10/18/2024 8:17 AM EDT [facility] Urine (Urine) 10/16/2024 1:0 0 PM EDT 10/16/2024 5:14 PM EDT Comment:CLEAN CATCH~CC Narrative Organism Antibiotic Method Susceptibility Enterobacter cloacae complex Amoxicillin + Clavulanate CHARLOTTE METHOD >=32: Resistant Enterobacter cloacae complex Cefazolin CHARLOTTE METHOD >=64: Resistant Enterobacter cloacae complex Cefepime CHARLOTTE METHOD <=1: Susceptible Enterobacter cloacae complex Ceftazidime CHAR[place]OTTE METHOD <=1: Susceptible Enterobacter cloacae complex Ciprofloxacin CHARLOTTE METHOD <=0.25: Susceptible Enterobacter cloacae complex Gentamicin CHAR[place]OTTE METHOD <=1: Susceptible Enterobacter cloacae complex Levofloxacin CHARLOTTE METHOD <=0.12: Susceptible Enterobacter cloacae complex Nitrofurantoin CHAR[place]OTTE METHOD 64: Intermediate Enterobacter cloacae complex Piperacillin-tazobactam CHARLOTTE METHOD <=4: Susceptible Enterobacter cloacae complex Trimethoprim/sulfamethoxazo le CHARLOTTE METHOD <=20: Susceptible Comment: Karyn TOBARP MICROBIOLOGY - GENERAL ORDE RABLES Final Result [address] [address] * (ABNORMAL) POCT Urine Dipstick (Automated) (10/16/2024 12:27 PM EDT) COLOR LT YELLOW [facility] TURBIDITY Slightly Cloudy [facility] GLUCOSE, POCT Negative Negative [facility] KETONE, POCT Negative Negative [facility] OCCULT BLOOD, POCT Trace Intact(A) Negative [facility] [place] SPECIFIC GRAVITY, POCT 1.010 1.001 - 1.030 [facility] ALBUMIN, POCT Negative Negative [facility] Bili Negative Negative [facility] Urobilinogen 0.2 <1.0 [facility] NITRITE, POCT Negative Negative [facility] PH, POCT 5.5 5.0 - 8.0 [facility] WBC SCREEN, POCT Trace(A) Negative [facility] 10/16/2024 12:2 7 PM EDT 10/16/2024 12:30 PM EDT Karyn Rodas OPERATIONS ASSISTANT POINT OF CARE TEST ORDERABL ES Final Result [facility] AT [address] [address], [facility] [phone] from Last 3 Months Insurance MEDICARE PART A & B [employer] MEDEX SUPPLEMENT [facility] MEDICARE PART A & B [employer] MEDEX SUPPLEMENT [address] [place], [place] [id number] MEDICARE PART A & B [employer] [place] CROSS [facility] PART [facility] B [facility] MEDEX SUPPLEMENT [facility] MEDICARE PART A & B [employer] MEDEX SUPPLEMENT [facility] MEDICARE PART A & B [employer] MEDEX SUPPLEMENT [facility] Care Teams Label Tacker Relationship Specialty Start Date End Date Josie Patel MD [address] [place] [id number] PCP - General Internal Medicine 10/16/24 Additional Source Comments The information contained in this document represents components of the legal health record. It is not the complete legal health record.[facility]
== END 2024-12-06 11:44 | disposition home or self-care (01) ==
LOC: HO.HMCFM 11:04
PROVIDERS: PCP Internal Medicine; Visit Provider Physician Assistant
DX: M54.2 Cervicalgia (principal); I10 Essential (primary) hypertension

== ENCOUNTER → 2024-12-06 11:04 | Outpatient (BNVA) | payer MEDICARE, SELFPAY | PROVIDERS: PCP Internal Medicine; Visit Provider Physician Assistant | DX: I10 Essential (primary) hypertension (principal); E78.5 Hyperlipidemia, unspecified; M54.2 Cervicalgia; Z87.440 Personal history of urinary (tract) infections | CPT/HCPCS: 99212 ==

== ENCOUNTER 2024-12-11 10:17 | Outpatient (REF) | payer MEDICARE, SELFPAY ==
--- OUTSIDE RECORDS SUMMARY | 2022-08-04 10:02 | XMS_ITS | Encounter Summary ---
Author Organization [facility] Address [address] [place] [address] Phone Care Team Providers Care Jewel Blocker And Sawyer Name Role Phone Josie Patel MD Primary Care Provider Encounter Details Date Type Department Care Team (Late st Contact Info) Description 08/04/2022 10:02 AM EDT Hospital Encounter [facility] [address] [place] [address] [phone] Lottie Bah, DISTRIBUTION OPERATIONS SUPERVISOR [address] [place] [address] [email or web address] Social History Tobacco Use Types Packs/Day Years [...] fracture or dislocation. us Lottie B Whitehill DISTRIBUTION OPERATIONS SUPERVISOR IMG XR UPPER EXTREMITY Pat l Result documented in this encounter Visit Diagnoses Not on filedocumented in this encounter Care Teams Jewel Blocker And Sawyer Relationship Specialty Start Date End Date Josie Patel MD PCP - General Internal Medicine 08/04/22 10/15/24 documented as of this encounter Additional Source Comments The information contained in this document represents components of the legal health record. It is not the complete legal health record.[facility]
--- NOTE | ~2024-12-11 | XR_ITS ---
EXAMINATION: XR CERVICAL SPINE CLINICAL INFORMATION: M54.2 - Cervicalgia COMPARISON: September 23, 2023 TECHNIQUE: 3 views of the cervical spine were obtained. FINDINGS: There is no prevertebral soft tissue edema. There is straightening of cervical lordosis below C4. C2-3: There is minimal grade 1 retrolisthesis, unchanged. C3-4: Unremarkable. C4-5: Unremarkable. C5-6: There is moderate disc space narrowing with endplate osteophytes and subtle retrolisthesis similar to the prior. C6-7: There is mild disc space narrowing with endplate osteophytes. Unchanged. C7-T1: Unremarkable. XR/XR cervical spine 3V IMPRESSION: Multilevel degenerative changes are most advanced at C5-6 and similar to the prior study. Electronically signed by: Obdulio Johnson MD 12/11/2024 10:48 AM EDT
--- OUTSIDE RECORDS SUMMARY | 2024-12-11 12:01 | XMS_ITS | Clinical Summary ---
Author Organization [facility] Address [address] [place] [phone] Phone Care Team Providers Care Wastewater Plant Civil Engineer Name Role Phone Josie Patel MD Primary Care Provider Allergies Active Allergy Reactions Criticality Noted Date Comments Penicillins Rash Low 08/04/2022 Medications lisinopril (PRINIVIL,ZESTRI L) 10 MG tablet 07/07/2022 Act oksana lisinopril (PRINIVIL,ZESTRI L) 20 MG tablet Take 20 mg by mouth daily. 09/09/2024 Active Active Problems No known active problems Encounters Date Type Department Care Team Description 10/18/2024 Telephone [facility] at [address] [address] Kellie Jaime CNP 10/16/2024 1:00 PM EDT Office Visit [facility] at [address] [address] Karyn Rodas FNP Acute UTI (urinary tract [...] Special Requests None 10/16/2024 1:00 PM EDT [facility] Urine Culture >100,000 colony forming units per mL ENTEROBACTER CLOACAE COMPLEX(A) 10/18/2024 8:17 AM EDT [facility] Urine (Urine) 10/16/2024 1:0 0 PM [...] MICROBIOLOGY - GENERAL ORDE RABLES Final Result [address] [address] * (ABNORMAL) POCT Urine Dipstick (Automated) (10/16/2024 12:27 PM EDT) COLOR LT YELLOW [facility] TURBIDITY Slightly Cloudy [facility] GLUCOSE, POCT Negative Negative [facility] KETONE, POCT Negative Negative [facility] OCCULT BLOOD, POCT Trace Intact(A) Negative [facility] [place] SPECIFIC GRAVITY, POCT 1.010 1.001 - 1.030 [facility] ALBUMIN, POCT Negative Negative [facility] Bili Negative Negative [facility] Urobilinogen 0.2 <1.0 [facility] NITRITE, POCT Negative Negative [facility] PH, POCT 5.5 5.0 - 8.0 [facility] [place] WBC SCREEN, POCT Trace(A) Negative [facility] [place] 10/16/2024 12:2 7 PM EDT 10/16/2024 12:30 PM EDT Karyn Rodas FLOATLIGHT POWDER MIXER POINT OF CARE TEST ORDERABL ES Final Result [facility] AT [address] [address], [facility] [phone] from Last 3 Months Insurance MEDICARE PART A & B [employer] MEDEX SUPPLEMENT [facility] MEDICARE PART A & B [employer] MEDEX SUPPLEMENT [address] [place], [place] [id number] MEDICARE PART A & B [employer] [facility] B [facility] MEDEX SUPPLEMENT [facility] MEDICARE PART A & B [employer] MEDEX SUPPLEMENT [facility] MEDICARE PART A & B [employer] MEDEX SUPPLEMENT [facility] [employer] Care Teams Wastewater Plant Civil Engineer Relationship Specialty Start Date End Date Josie Patel MD [address] [place] [phone] PCP - General Internal Medicine 10/16/24 Additional Source Comments The information contained in this document represents components of the legal health record. It is not the complete legal health record.[facility]
== END 2024-12-11 10:18 | disposition home or self-care (01) ==
LOC: HO.XRAY 10:17
PROVIDERS: PCP Internal Medicine; Visit Provider Physician Assistant
DX: M54.2 Cervicalgia (principal)
CPT/HCPCS: 72040

== ENCOUNTER → 2024-12-11 10:21 | Outpatient (BNV) | payer MEDICARE, SELFPAY | PROVIDERS: PCP Internal Medicine; Visit Provider Radiology Diagnostic Radiology | DX: M50.322 Other cervical disc degeneration at C5-C6 level (principal) | CPT/HCPCS: 72040 ==

== ENCOUNTER 2025-01-09 09:03 | Outpatient (REF) | payer MEDICARE, SELFPAY ==
--- OUTSIDE RECORDS SUMMARY | 2022-08-04 09:02 | XMS_ITS | Encounter Summary ---
Author Organization [facility] Address [address] [place] [address] Phone Care Team Providers Care Doughnut Maker Name Role Phone Josie Patel MD Primary Care Provider Encounter Details Date Type Department Care Team (Late st Contact Info) Description 08/04/2022 10:02 AM EDT Hospital Encounter [facility] [address] [place] [address] [phone] Lottie Bah, ADVISOR TO COMMAND IN COMBAT [address] [place] [address] [email or web address] Social History Tobacco Use Types Packs/Day Years [...] fracture or dislocation. us Lottie B Whitehill ADVISOR TO COMMAND IN COMBAT IMG XR UPPER EXTREMITY Pat l Result documented in this encounter Visit Diagnoses Not on filedocumented in this encounter Care Teams Doughnut Maker Relationship Specialty Start Date End Date Josie Patel MD PCP - General Internal Medicine 08/04/22 10/15/24 documented as of this encounter Additional Source Comments The information contained in this document represents components of the legal health record. It is not the complete legal health record.[facility]
--- NOTE | ~2025-01-09 | MM_ITS ---
EXAMINATION: MM SCREENING DIGITAL BREAST TOMOSYNTHESIS, BILATERAL CLINICAL INFORMATION: Screening. Asymptomatic. COMPARISON: Comparison made to multiple prior, most recent January 04, 2024, and most remote October 11, 2018. TECHNIQUE: Digital breast tomosynthesis is performed in mediolateral oblique and craniocaudal views along with computer-aided detection (CAD). Synthesized 2D images are generated from the tomosynthesis. FINDINGS: BREAST COMPOSITION: There are scattered areas of fibroglandular density. BILATERAL BREASTS: No significant masses, suspicious calcifications or other abnormalities are seen in either breast. MM/MM tomosynthesis screening BI IMPRESSION: BILATERAL BREASTS: Negative, no mammographic evidence of malignancy. Normal interval follow-up is recommended in 12 months. ASSESSMENT: BI-RADS: Category 1: Negative RECOMMENDATION: Routine annual mammography screening. FOLLOW-UP: 1 year F/U This examination should not preclude the clinical evaluation of a suspicious palpable abnormality. This patient's information was entered into a reminder system with a target due date for their next mammogram. Electronically signed by: Glory Grimes MD 01/10/2025 07:19 PM [facility]
--- OUTSIDE RECORDS SUMMARY | 2025-01-09 09:46 | XMS_ITS | Clinical Summary ---
Author Organization [facility] Address [address] [place] [phone] Phone Care Team Providers Care Personal Shopper Name Role Phone Josie Patel MD Primary Care Provider Allergies Active Allergy Reactions Criticality Noted Date Comments Penicillins Rash Low 08/04/2022 Medications lisinopril (PRINIVIL,ZESTRI L) 10 MG tablet 07/07/2022 Act oksana lisinopril (PRINIVIL,ZESTRI L) 20 MG tablet Take 20 mg by mouth daily. 09/09/2024 Active Active Problems No known active problems Encounters Date Type Department Care Team Description 10/18/2024 Telephone [facility] at [address] [address] Kellie Jaime CNP 10/16/2024 1:00 PM EDT Office Visit [facility] at [address] [address] Karyn Rodas FNP Acute UTI (urinary tract [...] Special Requests None 10/16/2024 1:00 PM EDT [facility] Urine Culture >100,000 colony forming units per mL ENTEROBACTER CLOACAE COMPLEX(A) 10/18/2024 8:17 AM EDT [facility] Urine (Urine) 10/16/2024 1:0 0 [...] le CHARLOTTE METHOD <=20: Susceptible Comment: Karyn Rodas JOINT MAKER MACHINE LAB MICROBIOLOGY CULTURE OR DERABLES Final Result [address] [address] * (ABNORMAL) POCT Urine Dipstick (Automated) (10/16/2024 12:27 PM EDT) COLOR LT YELLOW [facility] TURBIDITY Slightly Cloudy [facility] GLUCOSE, POCT Negative Negative [facility] KETONE, POCT Negative Negative [facility] OCCULT BLOOD, POCT Trace Intact(A) Negative [facility] SPECIFIC GRAVITY, POCT 1.010 1.001 - 1.030 [facility] ALBUMIN, POCT Negative Negative [facility] Bili Negative Negative [facility] Urobilinogen 0.2 <1.0 [facility] NITRITE, POCT Negative Negative [facility] PH, POCT 5.5 5.0 - 8.0 [facility] WBC SCREEN, POCT Trace(A) Negative [facility] 10/16/2024 12:2 7 PM EDT 10/16/2024 12:30 PM EDT Karyn Rodas JOINT MAKER MACHINE LAB POCT ENTER/EDIT ORDERAB LES Final Result [facility] AT [address] [address], [facility] [phone] from Last 3 Months Insurance MEDICARE PART A & B [employer] MEDEX SUPPLEMENT [facility] MEDICARE PART A & B [employer]UE [employer]OSS MEDEX SUPPLEMENT [address] [place], [place] [id number] MEDICARE PART A & B [email or web address] CROSS [facility] PART [facility] & B [facility] MEDEX SUPPLEMENT [facility] MEDICARE PART A & B [employer] MEDEX SUPPLEMENT [facility] MEDICARE PART A & B [employer] MEDEX SUPPLEMENT [facility] [employer] Care Teams Personal Shopper Relationship Specialty Start Date End Date Josie Patel MD [address] [place] [phone] PCP - General Internal Medicine 10/16/24 Additional Source Comments The information contained in this document represents components of the legal health record. It is not the complete legal health record.[facility]
== END 2025-01-09 09:04 | disposition home or self-care (01) ==
LOC: HO.MAMMO 09:03
PROVIDERS: PCP Internal Medicine; Visit Provider Internal Medicine
DX: Z12.31 Encounter for screening mammogram for malignant neoplasm of breast (principal)
CPT/HCPCS: 77063; 77067

== ENCOUNTER → 2025-01-09 09:30 | Outpatient (BNV) | payer MEDICARE, SELFPAY | PROVIDERS: PCP Internal Medicine; Visit Provider Radiology Body Imaging | DX: Z12.31 Encounter for screening mammogram for malignant neoplasm of breast (principal) | CPT/HCPCS: 77063; 77067 ==

== ENCOUNTER 2025-02-06 10:31 | Outpatient (AMB) | payer MEDICARE, SELFPAY ==
--- OUTSIDE RECORDS SUMMARY | 2022-08-04 09:02 | XMS_ITS | Encounter Summary ---
Author Organization [facility] Address [address] [place] [address] Phone Care Team Providers Care Skein Washer Name Role Phone Josie Patel MD Primary Care Provider Encounter Details Date Type Department Care Team (Late st Contact Info) Description 08/04/2022 10:02 AM EDT Hospital Encounter [facility] [address] [place] [address] [phone] Lottie Bah, SIZER MACHINE [address] [place] [address] [email or web address] Social History Tobacco Use Types Packs/Day Years Used Date Smoking Tobacco: Former Cigarettes Passive Smoke Exposure: Never Smokeless Tobacco: Never Education Answer Date Recorded Are you interested in more education? Not on miranda e 08/04/2022 Are you concerned about learning? Not on file 08/04/2022 No 08/04/2022 No 08/04/2022 Digital Access Answer Date Recorded No 08/04/2022 No 08/04/2022 Reliable internet access at home? Not on file 08/04/2022 Device with a working camera? Not on file Comments Unknown Sex and Gender Information Value Date Recorded Sex Assigned at Not on file Legal Sex Female 8:57 AM EDT Gender Identity Not on file Sexual Orientation Not on file documented as of this encounter Plan of Treatment Not on file documented as of this encounter Procedures Procedure Name Priority Date/Time Associated Diagnosis Comments XR FINGER 2 OR MORE VIEWS (RIGHT) Urgent/patient waiting 08/04/2022 10:09 AM EDT Pain of right thumb documented in this encounter Results * XR FINGER 2 OR MORE VIEWS (RIGHT) (08/04/2022 10:09 AM EDT) Anatomical Region Laterality Modality Hand Right Computed Radiogr aphy 08/04/2022 10:1 4 AM EDT Impressions 08/04/2022 10:15 AM EDT No fracture or dislocation. Narrative 08/04/2022 10:15 AM EDT XR FINGER 2 OR MORE VIEWS (RIGHT) COMPARISON: None. FINDINGS: No fracture. Normal alignment. Moderate narrowing of the proximal and distal interphalangeal joint spaces. No soft tissue swelling. Procedure Note Ankita Perez MD - 08/04/2022 XR FINGER 2 OR MORE VIEWS (RIGHT) COMPARISON: None. FINDINGS: No fracture. Normal alignment. Moderate narrowing of the proximal anddistal interphalangeal joint spaces. No soft tissue swelling. IMPRESSION: No fracture or dislocation. us Lottie B Whitehill SIZER MACHINE IMG XR UPPER EXTREMITY Pat l Result documented in this encounter Visit Diagnoses Not on filedocumented in this encounter Care Teams Skein Washer Relationship Specialty Start Date End Date Josie Patel MD PCP - General Internal Medicine 08/04/22 10/15/24 documented as of this encounter Additional Source Comments The information contained in this document represents components of the legal health record. It is not the complete legal health record.[facility]
--- NOTE | 2025-02-06 10:33 | A.OFFVIS_ITS ---
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 Blood pressure well controlled. Hyperlipidemia, Declines statin therapy. Following with urology for frequent UTIs. Following with Dr Brito. [place] this morning that she might be developing a UTI MSK: Osteoporosis. Was on fosamax x years was not helping readings so stopped. Takes calcium and vitamin D. would like to repeat DXA next year DDD-cervical spine. Causes episodic left neck pain- She went to the dentist -no tooth problems though likely shingles. Went to the ENT. Ear doctor said no ear issue. ER doctor thought shingles. She more recently has had episodes of shooting pain behind the right ear. She had bilateral carotid which showed non significant stenosis but noted possible arrythmia at the time. She had follow up EKG that was sinus bradycardia with non specific ST changes. Mammo-01/2025 Colonoscopy-cologuard last year normal. All colonoscopys to date have been normal ROS see hpi PHYSICAL EXAM: GENERAL: Alert and oriented x 3. NAD EYES: EOMI. Anicteric. HENT: Moist mucous membranes. No scleral icterus. No cervical lymphadenopathy. LUNGS: Clear to auscultation bilaterally. CARDIOVASCULAR: Regular rate and rhythm. No murmur. No JVD. ABDOMEN: Soft, non-tender +bs EXTREMITIES: No edema. Non-tender. SKIN: No rashes or lesions. Warm. NEUROLOGIC: No focal neurological deficits. CN II-XII grossly intact PSYCHIATRIC: Cooperative. Appropriate mood and affect [facility] Medical History Shingles Renal cyst Osteoporosis GERD (gastroesophageal reflux disease) Hypertension Surgical History History of cataract surgery History of tubal ligation Hx laparoscopic cholecystectomy Family History Mother Diabetes Father Cardiovascular disease Sister Cancer Sister Cancer Sister Cancer Social History (Updated 02/06/25 @ 10:45 by Rylee Laguerre CMA) Household Members: Spouse Housing: House 75 years or older and lives alone: No Alcohol intake: current Alcohol intake frequency: holidays/special occasions only Patient Tobacco Use Status: Former Tobacco user (quit 35 years ago) Cigarette Packs Per Day: 0.5 Years Smoked: 15 e-Cigarette/Vaping Use: Never Used Second Hand Smoke Exposure: No service: No Current occupational status: retired Cognitive needs: No Hearing needs: No Vision needs: No Questionnaire Medicare Wellness Checkup What is your age?: 80 or older What gender do you identify with?: female During the past 4 weeks, how much have you been bothered by emotional problems such as feeling anxious, depressed, irritable, sad or downhearted, and blue?: slightly During the past 4 weeks, has your physical & emotional health limited your social activities with family, friends, neighbors, or groups?: not at all During the past 4 weeks, how much bodily pain have you generally had?: no pain During the past 4 weeks, was someone available to help you if you needed & wanted help?: no, not at all (doesnt need help) During the past 4 weeks, what was the hardest physical activity you could do for at least 2 minutes?: heavy Can you get to places out of walking distance without help? (For eg., can you travel alone on buses, taxis or drive your car?): Yes Can you go shopping for groceries or clothes without someone's help?: Yes Can you prepare your own meals?: Yes Can you do your housework without help?: Yes Because of any health problems, do you need the help of another person with your personal care needs such as eating, bathing, dressing or getting around the house?: No Can you handle your own money without help?: Yes During the past 4 weeks, how would you rate your health in general?: excellent During the past 4 weeks how have things been going for you?: pretty well Are you having difficulties driving your car?: no Do you always fasten your seat belt when you are in a car?: yes, usually During past 4 weeks, have you been bothered by the following: never: Sexual problems?, Trouble eating well?, Teeth or denture problems?, Problems using the telephone? and Tiredness or fatigue? and seldom: Falling or dizzy when standing up Have you fallen 2 or more times in the past year?: No Are you afraid of falling?: No Are you a smoker?: no During the past 4 weeks, how many drinks of wine, beer, or other alcoholic beverages did you have?: no alcohol at all Do you exercise for about 20 minutes 3 or more times a week?: yes, some of the time Have you been given information to help with the following?: yes: Hazards in your house that might hurt you? and yes: Keeping track of your medications? How often do you have trouble taking medicines the way you have been told to take them?: I always take medicine as prescribed How confident are you that you can control & manage most of your health problems?: very confident What is your race?: White Mini Mental State Exam (MMSE) Orientation What is the (year) (season) (date) (day) (month)?: year, season, date, day and month Where are we (state) (county) (town or city) (hospital) (floor)?: state, county, town or city, hospital/clinic and floor Registration Name of 3 unrelated objects clearly and slowly, then ask patient to repeat all 3 of them. (1st repeat determines score. Make sure they can repeat all three): object 1, object 2 and object 3 Attention & Calculation (CHOOSE ONE) Ask pt to begin with 100 & count backward by 7. Stop after 5 repeats. If pt cannot ask them to spell the word WORLD backward.: 93, 86, 79, 72 and 65 Spell WORLD backwards (DLROW): 5 letters Recall Ask patient to repeat the 3 items from question #3.: object 1, object 2 and object 3 Language Show patient a wristwatch & ask what it is. Repeat for pencil.: watch and pencil Ask the patient to repeat the phrase 'No ifs, ands, or buts' after you.: correct Ask the patient to 'take a piece of paper with their right hand' 'fold paper in half' 'place paper on floor': take paper in right hand, fold paper in half and place paper on floor Print the sentence 'CLOSE YOUR EYES' on a piece. If patient actually closes eyes then score.: followed written direction Give patient a blank piece of paper & ask to write a sentence. Score if it contains a noun & verb.: sentence contains subject and verb Ask patient to copy figure of intersecting pentagons exactly. Score if all 10 angles & 2 intersects are included.: all 10 angles present & 2 are intersected Score Score: 35 Activity of Daily Living Bathing - sponge bath, tub bath or shower: receives no assistance (gets in/out by self, if usual bathing means Dressing - getting clothes from closets & drawers, including inner/outer garments & fasteners.: gets clothes & gets completely dressed without help Toileting - going to the 'toilet room' for urine/bowel elimination & cleaning self/arranging clothes: goes to toilet room, cleans self, arranges clothes without help Transfer: moves in & out of bed and chair without help (may use support object) Continence: controls urination/bowel movements completely by self Feeding: feeds self without help Total Score: 0 Information obtained from: patient Using telephone: independent Traveling: independent Shopping: independent Preparing meals: independent Housework: independent Taking medicine: independent Managing money: independent PHQ-9 Over the last 2 weeks, how often have you been bothered by any of the following problems? 1. Little interest or pleasure in doing things: not at all 2. Feeling down, depressed, or hopeless: several days 3. Trouble falling or staying asleep, or sleeping too much: not at all 4. Feeling tired or having little energy: not at all 5. Poor appetite or overeating: not at all 6. Feeling bad about yourself - or that you are a failure or have let yourself or your family down: not at all 7. Trouble concentrating on things, such as reading the newspaper or watching television: not at all 8. Moving or speaking so slowly that other people could have noticed. Or the opposite - being so fidgety or restless that you have been moving around a lot more than usual: not at all 9. Thoughts that you would be better off or of hurting yourself in some way: not at all Total score: 1 Depression Screening Interpretation: Negative Depression Screening Done: Yes 81956 - PHQ-9 Billing: Yes Source: Developed by Drs. Amadou Harding, Yakelin Chávez, Pedro Anne and colleagues, with an educational brandon from [employer]. Physical Exam Vital Signs: Last Vital Signs Temp 98.2 F 02/06/25 10:42 Pulse 63 02/06/25 10:42 Resp 14 02/06/25 10:42 BP 124/82 02/06/25 10:42 Pulse Ox 99 02/06/25 10:42 Oxygen Delivery Method Room Air 02/06/25 10:42 BMI result Body Mass Index 25.5 Assessment & Plan Assessment & Plan (1) Medicare annual wellness visit, subsequent: Code(s): Z00.00 - Encounter for general adult medical examination without abnormal findings (2) Hypertension: Code(s): I10 - Essential (primary) hypertension Qualifiers: Hypertension type: primary hypertension Qualified Code(s): I10 - Essential (primary) hypertension (3) Hyperlipidemia: Code(s): E78.5 - Hyperlipidemia, unspecified Qualifiers: Hyperlipidemia type: unspecified Qualified Code(s): E78.5 - Hyperlipidemia, unspecified (4) Osteoporosis: Code(s): M81.0 - Age-related osteoporosis without current pathological fracture Qualifiers: Osteoporosis type: age-related Presence of current pathological fracture: without current pathological fracture Qualified Code(s): M81.0 - Age- related osteoporosis without current pathological fracture Plan MWV HRA, care team, MMSE, ADLs, reviewed Hypertension is controlled. Dysuria-UA/UCx ordered Orders: Orders Comprehensive Met. Panel 02/06/25 I10 - Essential (primary) hypertension UA and rflx microscopic 02/06/25 I10 - Essential (primary) hypertension, M81.0 - Age-related osteoporosis without current pathological fracture, R30.0 - Dysuria, Z13.0 - Encounter for screening for diseases of the blood and blood- forming organs and certain disorders involving the immune mechanism IRON PROFILE 02/06/25 I10 - Essential (primary) hypertension, M81.0 - Age- related osteoporosis without current pathological fracture, R30.0 - Dysuria, Z13.0 - Encounter for screening for diseases of the blood and blood-forming organs and certain disorders involving the immune mechanism Lipid Panel 02/06/25 I10 - Essential (primary) hypertension Complete Blood Count Auto Diff 02/06/25 I10 - Essential (primary) hypertension, M81.0 - Age-related osteoporosis without current pathological fracture, R30.0 - Dysuria, Z13.0 - Encounter for screening for diseases of the blood and blood- forming organs and certain disorders involving the immune mechanism MM tomosynthesis screening BI 10 Months Z12.31 - Encounter for screening mammogram for malignant neoplasm of breast XR DEXA axial skeleton 10 Months M81.0 - Age-related osteoporosis without current pathological fracture Medications: New nitrofurantoin monohyd/m-cryst 100 mg (Macrobid) must administer with a meal/food 100 mg PO Q12H 14 caps 0RF 7 days Quality Reporting (2019) Depression/Bipolar (159/160/161/177) PHQ-9: Total score: 1 Coding Level of Care Code Medicare Subsequent (G0439) Diagnoses Medicare annual wellness visit, subsequent Z00.00 Primary hypertension I10 Hypertension type: primary hypertension Hyperlipidemia, unspecified hyperlipidemia type E78.5 Hyperlipidemia type: unspecified Age-related osteoporosis without current pathological fracture M81.0 Osteoporosis type: age-related Presence of current pathological fracture: without current pathological fracture Additional Codes PHQ-9 - 39300 - PHQ-9 Billing: Yes ([id number])
[2025-02-06 10:42] VITALS: BP 124/82; PULSE 63; RESP 14; TEMP 36.8; O2SAT 99; BMI 25.5
--- OUTSIDE RECORDS SUMMARY | 2025-02-06 12:09 | XMS_ITS | Clinical Summary ---
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 09/09/2024 Active Active Problems No known active problems Immunizations Immunization Administration Dates Next Due INFLUENZA, [...] this topic Medical Devices Not on file Insurance MEDICARE PART A & B [employer] MEDEX SUPPLEMENT [facility] MEDICARE PART A & B [employer] MEDEX SUPPLEMENT [facility] MEDICARE PART A & B [employer] MEDEX SUPPLEMENT [facility] MEDIC[facility] PART A & B Member Subscriber Plan / Payer ( fective 2009-Present) Name:Melania Ray Member ID:[id number] Relation to Subscriber:Self Name:Melania Ray Subscriber ID:[id number] Payer ID:[id number] Group ID:Not on file Type:Medicare Address: [facility] [employer] [facility] [address] [place] [address] [facility] MEDEX SUPPLEMENT [facility] MEDICARE PART A & B [employer] [place] MEDEX SUPPLEMENT [facility] MEDICARE PART A & B [employer] MEDEX SUPPLEMENT [facility] Care Teams Asphalt Still Operator Relationship Specialty Start Date End Date Josie Patel MD [address] [place] [address] PCP - General Internal Medicine 10/16/24 Additional Source Comments The information contained in this document represents components of the legal health record. It is not the complete legal health record.[facility]
== END 2025-02-06 11:12 | disposition home or self-care (01) ==
LOC: HO.HMCFM 10:32
PROVIDERS: PCP Internal Medicine; Visit Provider Internal Medicine
DX: Z00.00 Encounter for general adult medical examination without abnormal findings (principal); I10 Essential (primary) hypertension; E78.5 Hyperlipidemia, unspecified; M81.0 Age-related osteoporosis without current pathological fracture

== ENCOUNTER 2025-02-06 10:31 | Outpatient (REF) | payer MEDICARE, SELFPAY ==
[2025-02-06 14:45] LABS: MANUAL DIFF FLAG NO
[2025-02-06 14:55] LABS: Hematocrit 40.8 % (37.0-47.0); Hemoglobin 13.6 g/dl (12.0-16.0); Imm Gran Abs Auto 0.01 X10*3/uL (0.00-0.03); Imm Gran Pct Auto 0.1 % (0.0-0.4); Lymphocytes Absolute Auto 1.8 X10*3/uL (1.2-4.9); Mean Corpuscular HGB Conc 33.3 g/dl (31.0-35.0); Mean Corpuscular Hemoglobin 30.4 pg (27.0-33.0); Mean Corpuscular Volume 91.1 fL (80.0-98.0); NRBC Abs Auto 0.000 X10*3/uL (0.0-0.012); NRBC Pct Auto 0.0 /100WBC (0.0-0.2); Platelet Count 322 X10*3/uL (160-400); Red Blood Count 4.48 X10*6/uL (4.20-5.50); White Blood Count 7.4 X10*3/uL (4.8-10.8)
[2025-02-06 15:05] LABS: Appearance Urine Cloudy; Glucose Urine UA Negative (Negative); PH 6.5 (5.0-9.0); Specific Gravity - Urine 1.015 (1.005-1.025); UMIC TRIGGER UA YES; UMIC TRIGGER UACC YES
[2025-02-06 15:07] LABS: UACC Culture Trigger YES
[2025-02-06 15:20] LABS: Alanine Aminotransferase 23 U/L (0-31); Albumin Level 4.5 g/dL (3.5-5.0); Alkaline Phosphatase 76 U/L (39-117); Anion Gap 13 (12-20); Aspartate Amino Transferase 30 U/L (5-31); Blood Urea Nitrogen 26 mg/dL (9-16); Calcium 9.9 mg/dL (8.4-10.2); Carbon Dioxide 28 mmol/L (22-29); Chloride 104 mmol/L (96-108); Cholesterol 231 mg/dL (<200); Estimated Glomerular Filt Rate 47; HDL Cholesterol 50 mg/dL (>40); Iron 117 mcg/dL (30-160); Percent Iron Saturation 41 % (15-50); Potassium 4.3 mmol/L (3.3-5.1); Sodium 141 mmol/L (135-145); Total Iron Binding Capacity 282 mcg/dL (228-428); Total Protein 7.5 g/dL (6.5-8.0); Triglycerides 190 mg/dL (<150); Unsaturated Iron Binding 165 ug/dL
== END 2025-02-06 10:32 | disposition home or self-care (01) ==
LOC: HO.WFDLDS 10:31
PROVIDERS: PCP Internal Medicine; Visit Provider Internal Medicine
DX: Z00.00 Encounter for general adult medical examination without abnormal findings (principal); I10 Essential (primary) hypertension; M81.0 Age-related osteoporosis without current pathological fracture; R30.0 Dysuria; E78.5 Hyperlipidemia, unspecified; Z12.31 Encounter for screening mammogram for malignant neoplasm of breast; Z13.0 Encounter for screening for diseases of the blood and blood-forming organs and certain disorders involving the immune mechanism
CPT/HCPCS: 36415; 80053; 80061; 81001; 81003; 83540; 85025; 87086; 87088; 87186; 96127